=== PATIENT | male | born 1950 | race Caucasian/White ===

== ENCOUNTER 2018-06-08 11:26 | Inpatient (IN) | payer MEDICARE, MEDICAID ==
[~2018-06-08] VITALS: Ht 188 cm; Wt 98.9 kg
[~2018-06-08 11:26] MED LIST: AMLO5TAB4 PO; ASPI-495 PO; ATOR80TA GT; CLON0.1T14 GT; CLON0.3T4 GT; DIAZ5TAB GT; DOCU-141 PO; HYDR-3974 GT; HYDR-4077 GT; LORA-259 GT; MAGN400O6 PO; METO25TA20 GT; TRAM50TA GT; [UNRECOGNIZED DRUG - CODE] GT
[2018-06-08] MEDS ORDERED: CHOL100044 PO (11:59)
[2018-06-08] MEDS ORDERED: NA P133E RC (11:59)
[2018-06-08] MEDS ORDERED: BISA10SU8 RC (11:59)
[2018-06-08] MEDS ORDERED: LABE300T2 PO (11:59)
[2018-06-08] MEDS ORDERED: SERT25TA5 PO (11:59)
[2018-06-08] MEDS ORDERED: LEVE250T2 PO (11:59)
[2018-06-08] MEDS ORDERED: ACET-868 PO (11:59)
[2018-06-08] MEDS ORDERED: RANI150T8 PO (11:59)
[2018-06-08] MEDS ORDERED: SENN-168 PO (11:59)
[2018-06-08] MEDS ORDERED: ATOR10TA PO (11:59)
[2018-06-08] MEDS ORDERED: BENA20TA9 PO (11:59)
[2018-06-08] MEDS ORDERED: IV NS 0.9% 500 ML BAG IV ONE (12:30)
[2018-06-08 13:01] LABS: BASOPHILS # (AUTO) 0.1 /CMM (0.0-0.2); EOSINOPHILS % (AUTO) 2.7 % (0.0-6.0); HEMATOCRIT 39 % (39-51); HEMOGLOBIN 12.9 g/dL (13.5-17.5); LYMPHOCYTES # (AUTO) 1.7 /CMM (0.8-4.8); LYMPHOCYTES % (AUTO) 25.7 % (20.0-44.0); MEAN CORPUSCULAR HGB CONC 34 g/dl (31.0-36.0); MEAN CORPUSCULAR VOLUME 92 fL (80-96); MONOCYTES # (AUTO) 0.6 /CMM (0.1-1.30); MONOCYTES % (AUTO) 9.1 % (2.0-12.0); NEUTROPHILS # (AUTO) 4.1 /CMM (1.8-8.9); NEUTROPHILS % (AUTO) 61.5 % (43.0-81.0); PLATELET COUNT (AUTO) 226 /CMM (150-450); RED BLOOD CELL COUNT(AUTO) 4.17 MIL/uL (4.5-6.0); WHITE BLOOD COUNT (AUTO) 6.7 K/uL (4.3-11.0)
[2018-06-08 13:08] LABS: ALBUMIN 3.1 g/dL (3.4-5.0); BILIRUBIN,DIRECT 0.1 mg/dL (0.0-0.2); BILIRUBIN,TOTAL 0.3 mg/dL (0.2-1.0); CALCIUM, SERUM 9.2 mg/dL (8.5-10.1); CREATININE 1.1 mg/dL (0.6-1.3); POTASSIUM 3.9 mmol/L (3.5-5.1); TOTAL PROTEIN, SERUM 6.2 g/dL (6.4-8.2)
--- NOTE | 2018-06-08 13:54 | NUR ---
DR MARY ERWIN PAGED REGARDING ORDER FOR THIS PATIENT.
--- NOTE | 2018-06-08 14:33 | NUR ---
CALLED [facility] FOR THIS PATIENT, PAGED CHENTE.
--- NOTE | 2018-06-08 15:21 | NUR ---
ADMIT TO 310-2 TELE DX GI BLEED, ACCEPTING CHENTE NO
--- NOTE | 2018-06-08 15:25 | NUR ---
REPORT GIVEN TO LATOSHA KRAMER. PT AWAITING TRANSFER TO FLOOR.
--- NOTE | 2018-06-08 15:30 | NUR ---
PT STBLE FOR TRANSFER VSS
--- NOTE | 2018-06-08 15:30 | NUR ---
CAR RESTORERSUPERVISOR METALIZING NOTES RECEIVED PATIENT ON PATEL ACCOMPANIED BY 2 ER NURSES. PATIENT ADMITTED FOR PRIMARY DIAGNOSIS OF GI BLEED. PATIENT A/OX3 AND ABLE TO MAKE NEEDS KNOWN. RESPIRATION EVEN AND NON LABORED WITH NO ACUTE RESPIRATORY DISTRESS, NO SHORTNESS OF BREATH PRESENT, KEPT HEAD OF BED ELEVATED. ABDOMEN SOFT AND NON DISTENDED WITH ACTIVE BOWEL SOUNDS; LBM TODAY 06/08/2018. PATIENT DENIES PAIN AND DISCOMFORT AT THIS TIME. SKIN WARM TO TOUCH, INTACT AND DRY. IV SITE RIGHT HAND GAUGE 22. ORIENTED PATIENT TO PLACE AND STAFF. ALL CONCERNS ADDRESSED. PLACED CALL LIGHT WITHIN REACH TO ENSURE SAFETY. PAGED AYESHA FOR ADMISSION. WILL CONTINUE TO EVALUATE CARE.
[2018-06-08 16:00] VITALS: BP 120/70
[2018-06-08] MEDS ORDERED: INSULIN REGULAR, HUMAN 100 UNIT/ML 3 ML VIAL SQ PRN (16:30)
[2018-06-08] MEDS ORDERED: ACETAMINOPHEN 325 MG TABLET PO PRN (16:30)
[2018-06-08] MEDS ORDERED: Z GUARD REMEDY 2 OZ OINT TP PRN (16:30)
[2018-06-08] MEDS ORDERED: MORPHINE SULFATE INJ 2 MG/ML DISP.SYRIN IV PRN (16:30)
[2018-06-08] MEDS ORDERED: ONDANSETRON HCL/PF 4 MG/2 ML VIAL IVP PRN (16:30)
[2018-06-08] MEDS ORDERED: HYDROCODONE/APAP 5/325MG 1 EACH TABLET PO PRN (16:30)
[2018-06-08] MEDS ORDERED: MAGNESIUM HYDROXIDE 30 ML UDC PO PRN (16:30)
[2018-06-08] MEDS ORDERED: DEXTROSE 50%-WATER 50 ML DISP.SYRIN IV PRN (16:30)
[2018-06-08] MEDS ORDERED: MAG HYDROX/AL HYDROX/SIMETH 30 ML UDC PO PRN (16:30)
[2018-06-08] MEDS ORDERED: ZOLPIDEM TARTRATE 5 MG TABLET PO PRN (16:30)
[2018-06-08] MEDS: LEVETIRACETAM (250 MG) 250 MG TABLET PO SCH (17:48)
[2018-06-08] MEDS: LABETALOL HCL (100MG) 100 MG TABLET PO SCH (17:48)
[2018-06-08] MEDS: PANTOPRAZOLE 40 MG VIAL IV SCH (17:49)
--- NOTE | 2018-06-08 18:30 | NUR ---
FINISHING POWDER PRESS OPERATOR OBTAINED CONSENT FOR COLONOSCOPY AND EGD WITH PATIENT FULL ORIENTATION AND VERBAL UNDERSTANDING. RISK AND BENEFITS OF THE PROCEDURE DISCUSSED WITH NO CONCERNS ADDRESSED AFTER.
--- NOTE | 2018-06-08 18:37 | NUR ---
ANIMAL STUNNER CLOSING NOTES PATIENT A/O X2 AND ABLE TO MAKE NEEDS KNOWN. RESPIRATION EVEN AND UNLABORED WITH NO ACUTE RESPIRATORY DISTRESS. ABDOMEN SOFT AND NON DISTENDED WITH ACTIVE BOWEL SOUNDS. DENIES PAIN AND DISCOMFORT. SKIN INTACT AND DRY, WARM TO TOUCH. IV SITE ON RIGHT HAND #20 WITH NO S/SX OF INFILTRATION. ALL CONCERNS ATTENDED. PLACED CALL LIGHT WITHIN REACH FOR SAFETY. ENDORSED PATIENT CONDITION TO NEXT SHIFT.
[2018-06-08] MEDS: CHOLECALCIFEROL 1,000 UNIT TABLET (VIT D3) PO SCH (18:52)
[2018-06-08] MEDS ORDERED: PEG 3350/NA SULF,BICARB,CL/KCL 4,000 ML BOTTLE PO ONE (19:00)
[2018-06-08] MEDS: BLOOD SUGAR DIAGNOSTIC 1 EACH STRIP IN SCH (19:03)
--- NOTE | 2018-06-08 19:08 | NUR ---
CROWN ASSEMBLY MACHINE SET UP MECHANIC PATIENT REFUSED ADMINISTRATION OF INSULIN PER SLIDING SCALE OF 2 UNITS. RISK AND BENEFITS DISCUSSED BUT STILL REFUSED. WILL CONTINUE TO EVALUATE CARE
--- NOTE | 2018-06-08 19:40 | NUR ---
RN NOTES RECEIVED PATIENT AWAKE IN SEMI FOWLERS POSITION IN BED, CALM RESTING COMFORTABLY, NO SIGNS OF ACUTE RESPIRATORY DISTRESS NOTED, ALL SAFETY MEASURES IN PLACED, ASPIRATION PRECAUTION MAINTAINED, ON FULL LIQUID DIET, INSTRUCTED PATIENT THAT HE WILL BE ON NPO AFTER MIDNIGHT IN PREPARATION FOR TOMORROWS PROCEDURE, COLONOSCOPY AND ENDOSCOPY, PATIENT VERBALIZES UNDERSTANDING. ALL NEEDS ATTENDED, WILL CONTINUE TO MONITOR ACCORDINGLY.
[2018-06-08 20:00] VITALS: BP 145/71
--- NOTE | 2018-06-08 20:10 | NUR ---
RN NOTES SISTER CALLED, INFORMED HER REGARDING PATIENT'S CONDITION.
--- NOTE | 2018-06-08 20:30 | NUR ---
RN NOTES PATIENT'S BROTHER CALLED, INFORMED HIM REGARDING PATIENT'S CONDITION.
[2018-06-08] MEDS: SENNOSIDES 8.6 MG TABLET PO SCH (21:17)
[2018-06-08] MEDS: ATORVASTATIN 10 MG TABLET PO SCH (21:17)
[2018-06-08] MEDS: DOCUSATE SODIUM 100 MG CAPSULE PO SCH (21:17)
[2018-06-08] MEDS: BENAZEPRIL HCL 20 MG TABLET PO SCH (21:17)
[2018-06-08] MEDS: FAMOTIDINE (20 MG) 20 MG TABLET PO SCH (21:18)
[2018-06-08] MEDS: AMLODIPINE BESYLATE 5 MG TABLET PO SCH (21:18)
[2018-06-09] VITALS (7 sets, daily range): BP systolic 111–151; BP diastolic 64–83
--- NOTE | 2018-06-09 00:05 | NUR ---
RN NOTES PATIENTS BLOOD SUGAR IS 89 MG/DL. WILL MONITOR.
--- NOTE | 2018-06-09 01:00 | NUR ---
RN NOTES PATIENT ON NPO FOR PROCEDURE CHRIS. PATIENT AWARE, AND VERBALIZES UNDERSTANDING, WILL MONITOR.
--- NOTE | 2018-06-09 05:00 | NUR ---
RN NOTES PATIENT REFUSED AM LABS, AT THIS TIME, WILL FOLLOW UP LATER.
[2018-06-09] MEDS: BLOOD SUGAR DIAGNOSTIC 1 EACH STRIP IN SCH ×4 (06:17→17:09)
--- NOTE | 2018-06-09 06:45 | NUR ---
RN NOTES ALL NEEDS ATTENDED AND MET, KEPT CLEAN DRY AND COMFORTABLE, BS IS 91 MG/DL, NPO MAINTAINED, WILL ENDORSE TO AM NURSE FOR CONTINUITY OF CARE.
[2018-06-09 07:21] LABS: BASOPHILS % (AUTO) 0.8 % (0.0-2.0); EOSINOPHILS % (AUTO) 2.7 % (0.0-6.0); HEMATOCRIT 37 % (39-51); HEMOGLOBIN 12.7 g/dL (13.5-17.5); LYMPHOCYTES # (AUTO) 1.6 /CMM (0.8-4.8); LYMPHOCYTES % (AUTO) 28.2 % (20.0-44.0); MEAN CORPUSCULAR HGB CONC 34 g/dl (31.0-36.0); MEAN CORPUSCULAR VOLUME 92 fL (80-96); MONOCYTES # (AUTO) 0.5 /CMM (0.1-1.30); MONOCYTES % (AUTO) 9.6 % (2.0-12.0); NEUTROPHILS # (AUTO) 3.3 /CMM (1.8-8.9); NEUTROPHILS % (AUTO) 58.7 % (43.0-81.0); PLATELET COUNT (AUTO) 204 /CMM (150-450); RED BLOOD CELL COUNT(AUTO) 4.08 MIL/uL (4.5-6.0); WHITE BLOOD COUNT (AUTO) 5.7 K/uL (4.3-11.0)
--- NOTE | 2018-06-09 07:30 | NUR ---
Bedside report recieved. patient seen in bed. arousable to voice. speaks slowly but is alert and oriented. patient confirms he has been npo verbally. reviewed poc of the day patient is scheduled for egd and colonoscopy. patient completed bowel prep but still is not clear per report at this time but is no longer having visible blood in stool. patient denies pain. bed down licked and call light in reach. encouraged to call for assistance as needed.
[2018-06-09 07:59] LABS: ALBUMIN 3.3 g/dL (3.4-5.0); BILIRUBIN,TOTAL 0.4 mg/dL (0.2-1.0); CALCIUM, SERUM 8.6 mg/dL (8.5-10.1); MAGNESIUM 1.6 mg/dL (1.8-2.4); PHOSPHORUS 2.7 mg/dL (2.5-4.9); POTASSIUM 3.7 mmol/L (3.5-5.1); TOTAL PROTEIN, SERUM 6.4 g/dL (6.4-8.2)
[2018-06-09] MEDS: BENAZEPRIL HCL 20 MG TABLET PO SCH ×2 (09:00→21:30)
[2018-06-09] MEDS: SERTRALINE HCL 25 MG TABLET PO SCH (09:00)
[2018-06-09] MEDS: LEVETIRACETAM (250 MG) 250 MG TABLET PO SCH ×2 (09:00→17:20)
[2018-06-09] MEDS: LABETALOL HCL (100MG) 100 MG TABLET PO SCH ×2 (09:00→21:30)
[2018-06-09] MEDS: Magnesium 1GM/D5W 100ML PREMIX 100 ML IV SCH ×2 (09:54→13:04)
[2018-06-09] MEDS: PANTOPRAZOLE 40 MG VIAL IV SCH ×2 (09:54→17:20)
[2018-06-09] MEDS: IV D5 LR 1,000 ML IV PRN (09:59)
[2018-06-09] MEDS ORDERED: METHYLENE BLUE 10 ML VIAL ONE (12:10)
[2018-06-09] MEDS: CHOLECALCIFEROL 1,000 UNIT TABLET (VIT D3) PO SCH (17:20)
--- NOTE | 2018-06-09 19:15 | NUR ---
MS RN NOTES RECEIVED PT IN BED AWAKE IN SEMI FOWLERS POSITION AND ABLE TO MAKE NEEDS KNOWN. BREATHING EVEN AND UNLABORED WITH NO S/S OF ACUTE DISTRESS OR SOB NOTED. SAFETY MEASURES IN PLACED WITH BED IN LOW LOCKED POSITIONS AND SIDE RAILS UP X2. RHAND #20G RUNNING D5LR @75 ML/HR. ASPIRATION PRECAUTIONS MAINTAINED. CALL LIGHT WITHIN REACH. WILL CONTINUE TO MONITOR.
--- NOTE | 2018-06-09 19:20 | NUR ---
RN CLOSE NOTE REPORT GIVEN TO YONNY KRAMER. PATIENT IN BED IN NO APPARENT DISTRESS. BED DOWN LOCKED CALL LIGHT IN REACH. PATIENT DENIES DISCOMFORT. BED DOWN LOCKED SR X3.
[2018-06-09] MEDS: DOCUSATE SODIUM 100 MG CAPSULE PO SCH (21:29)
[2018-06-09] MEDS: AMLODIPINE BESYLATE 5 MG TABLET PO SCH (21:29)
[2018-06-09] MEDS: FAMOTIDINE (20 MG) 20 MG TABLET PO SCH (21:30)
[2018-06-09] MEDS: POLYETHYLENE GLYCOL 3350 17 GM POWD.PACK PO SCH (21:30)
[2018-06-09] MEDS: ATORVASTATIN 10 MG TABLET PO SCH (21:30)
[2018-06-09] MEDS: SENNOSIDES 8.6 MG TABLET PO SCH (21:30)
--- NOTE | 2018-06-10 | NUR ---
MS RN NOTES PT REFUSED SKIN CHECK/PICTURES TAKEN. PT STATES THAT HE DOES NOT HAVE ANY WOUND, PROBLEM AREAS, OR REDNESS.
[2018-06-10] MEDS: BLOOD SUGAR DIAGNOSTIC 1 EACH STRIP IN SCH ×5 (00:57→21:21)
[2018-06-10] MEDS: IV D5 LR 1,000 ML IV PRN ×2 (03:29→18:59)
--- NOTE | 2018-06-10 06:25 | NUR ---
MS RN NOTES PT REFUSED 0600 BS CHECK.
--- NOTE | 2018-06-10 07:00 | NUR ---
MS RN NOTES PT IN BED SLEEPING IN SEMI FOWLERS POSITION BUT EASILY AWOKEN VERBALLY OR BY TOUCH. PT A/O X3 AND ABLE TO MAKE NEEDS KNOWN. BREATHING EVEN AND UNLABORED WITH NO S/S OF ACUTE DISTRESS OR SOB NOTED THROUGHOUT SHIFT. SAFETY MEASURES IN PLACED WITH BED IN LOW LOCKED POSITIONS AND SIDE RAILS UP X2. RHAND #20G RUNNING D5LR @75 ML/HR. ASPIRATION PRECAUTIONS MAINTAINED. CALL LIGHT WITHIN REACH. WILL ENDORSE TO ONCOMING NURSE FOR SHIKHA.
--- NOTE | 2018-06-10 07:15 | NUR ---
MS RN Opening Notes Patient asleep, resting in bed. Semi-Fowlers position. Alert and oriented x4, able to make needs known. No complaints of shortness of breath or pain at this time. Respirations even and unlabored on room air, no acute distress noted. Peripheral IV to the right hand 20 gauge, intact, patent and infusing fluids as ordered. Updated patient on current plan of care and safety measures. Patient verbalized understanding. Safety and fall precautions in place: bed in lowest and locked position, side rails up x2, bed alarm on, call light and personal possessions within reach. Will continue to monitor and intervene as needed.
[2018-06-10 08:00] VITALS: BP 126/74
[2018-06-10] MEDS: SERTRALINE HCL 25 MG TABLET PO SCH (08:55)
[2018-06-10] MEDS: PANTOPRAZOLE 40 MG VIAL IV SCH ×2 (08:55→16:19)
[2018-06-10] MEDS: LEVETIRACETAM (250 MG) 250 MG TABLET PO SCH ×2 (08:55→16:19)
[2018-06-10] MEDS: LABETALOL HCL (100MG) 100 MG TABLET PO SCH ×2 (08:56→21:07)
[2018-06-10] MEDS: BENAZEPRIL HCL 20 MG TABLET PO SCH ×2 (08:56→21:06)
[2018-06-10 10:12] LABS: BASOPHILS % (AUTO) 0.6 % (0.0-2.0); EOSINOPHILS % (AUTO) 2.3 % (0.0-6.0); HEMATOCRIT 35 % (39-51); HEMOGLOBIN 11.6 g/dL (13.5-17.5); LYMPHOCYTES # (AUTO) 1.3 /CMM (0.8-4.8); LYMPHOCYTES % (AUTO) 18.7 % (20.0-44.0); MEAN CORPUSCULAR HGB CONC 34 g/dl (31.0-36.0); MEAN CORPUSCULAR VOLUME 92 fL (80-96); MONOCYTES # (AUTO) 0.7 /CMM (0.1-1.30); MONOCYTES % (AUTO) 10.4 % (2.0-12.0); NEUTROPHILS # (AUTO) 4.6 /CMM (1.8-8.9); PLATELET COUNT (AUTO) 199 /CMM (150-450); RED BLOOD CELL COUNT(AUTO) 3.77 MIL/uL (4.5-6.0); WHITE BLOOD COUNT (AUTO) 6.8 K/uL (4.3-11.0)
[2018-06-10] MEDS ORDERED: CT SWABBABLE VALVE TRANS SET 1 EA INFUS.SET MC ONE (10:17)
[2018-06-10] MEDS ORDERED: IOHEXOL-300 100 ML VIAL IV ONE (10:17)
[2018-06-10] MEDS ORDERED: IV NS 0.9% 250 ML IV ONE (10:17)
[2018-06-10 10:24] LABS: CALCIUM, SERUM 8.6 mg/dL (8.5-10.1); CREATININE 1.1 mg/dL (0.6-1.3); MAGNESIUM 1.7 mg/dL (1.8-2.4); PHOSPHORUS 2.9 mg/dL (2.5-4.9); POTASSIUM 4.1 mmol/L (3.5-5.1)
[2018-06-10 16:00] VITALS: BP 119/61
[2018-06-10] MEDS: CHOLECALCIFEROL 1,000 UNIT TABLET (VIT D3) PO SCH (18:00)
--- NOTE | 2018-06-10 18:18 | NUR ---
MS RN Closing Notes Patient asleep, resting in bed. Semi-Fowlers position. Alert and oriented x4, able to make needs known. No complaints of shortness of breath or pain at this time. Respirations even and unlabored on room air, no acute distress noted. Peripheral IV to the right hand 20 gauge, intact, patent and infusing fluids as ordered. No acute events this shift. All needs attended to this shift. Currently, clean and dry. Updated patient on current plan of care and safety measures. Patient verbalized understanding. Safety and fall precautions in place: bed in lowest and locked position, side rails up x2, bed alarm on, call light and personal possessions within reach. Will endorse to shift foreman RN for continuity of care.
--- NOTE | 2018-06-10 19:50 | NUR ---
RN MS OPENING NOTES RECEIVED PT IN BED, AWAKE ALERT ORIENTED X4, BREATHING EVEN AND UNLABORED ON ROOM AIR. NO COMPLAINT OF PAIN OR DISCOMFORT AT THIS TIME. IV ACCESS ON THE R AC 20G WITH D5LR @75ML/HR. BED IN LOWEST LOCKED POSITION, CALL LIGHT WITHIN REACH AT ALL TIMES, WILL CONTINUE TO MONITOR FREQUENTLY/
[2018-06-10 20:00] VITALS: BP 118/64
[2018-06-10] MEDS: AMLODIPINE BESYLATE 5 MG TABLET PO SCH (21:05)
[2018-06-10] MEDS: ATORVASTATIN 10 MG TABLET PO SCH (21:06)
[2018-06-10] MEDS: POLYETHYLENE GLYCOL 3350 17 GM POWD.PACK PO SCH ×2 (21:07→21:22)
[2018-06-10] MEDS: DOCUSATE SODIUM 100 MG CAPSULE PO SCH (21:07)
[2018-06-10] MEDS: FAMOTIDINE (20 MG) 20 MG TABLET PO SCH (21:07)
[2018-06-10] MEDS: SENNOSIDES 8.6 MG TABLET PO SCH (21:09)
[2018-06-11] VITALS: BP 134/82
--- NOTE | 2018-06-11 06:14 | NUR ---
RN MS CLOSING NOTES PT REMAINS IN BED, AWAKE ALERT ORIENTED X4, BREATHING EVEN AND UNLABORED ON ROOM AIR. NO COMPLAINT OF PAIN OR DISCOMFORT AT THIS TIME. IV ACCESS ON THE R AC 20G WITH D5LR @75ML/HR. BED IN LOWEST LOCKED POSITION, CALL LIGHT WITHIN REACH AT ALL TIMES, WILL ENDORSE TO DAY NURSE FOR SHIKHA
[2018-06-11] MEDS: BLOOD SUGAR DIAGNOSTIC 1 EACH STRIP IN SCH ×4 (06:31→21:40)
[2018-06-11] MEDS: IV D5 LR 1,000 ML IV PRN (06:55)
[2018-06-11 08:00] VITALS: BP 112/68
--- NOTE | 2018-06-11 08:00 | NUR ---
MS RN AM NOTES PT REMAINS IN BED,SLEEPING COMFORTABLY BUT AROUSABLE.ALERT ORIENTED X4, BREATHING EVEN AND UNLABORED ON ROOM AIR. NO COMPLAINT OF PAIN OR DISCOMFORT AT THIS TIME. IV ACCESS ON THE R AC 20G WITH D5LR @75ML/HR. BED IN LOWEST LOCKED POSITION, CALL LIGHT WITHIN REACH AT ALL TIMES,
[2018-06-11] MEDS: BENAZEPRIL HCL 20 MG TABLET PO SCH ×2 (09:20→21:36)
[2018-06-11] MEDS: SERTRALINE HCL 25 MG TABLET PO SCH (09:21)
[2018-06-11] MEDS: LABETALOL HCL (100MG) 100 MG TABLET PO SCH ×2 (09:21→21:39)
[2018-06-11] MEDS: PANTOPRAZOLE 40 MG VIAL IV SCH ×2 (09:34→17:38)
[2018-06-11] MEDS: LEVETIRACETAM (250 MG) 250 MG TABLET PO SCH ×2 (09:52→17:38)
[2018-06-11 16:00] VITALS: BP 106/63
[2018-06-11] MEDS: CHOLECALCIFEROL 1,000 UNIT TABLET (VIT D3) PO SCH (17:38)
--- NOTE | 2018-06-11 18:53 | NUR ---
PT RESTING IN BED DENYING ANY PAIN OR DISTRESS.SEEN BY DR WRAY(ONCO).CALL LIGHT PLACED WITHIN REACH.
--- NOTE | 2018-06-11 19:15 | NUR ---
MS RN NOTES RECEIVED PT IN BED AWAKE IN SEMI FOWLERS POSITION AND ABLE TO MAKE NEEDS KNOWN. BREATHING EVEN AND UNLABORED WITH NO S/S OF ACUTE DISTRESS OR SOB NOTED. SAFETY MEASURES IN PLACED WITH BED IN LOW LOCKED POSITIONS AND SIDE RAILS UP X2. RAC #20G PATENT AND INTACT, HL. ASPIRATION PRECAUTIONS IN-PLACE. CALL LIGHT WITHIN REACH. WILL CONTINUE TO MONITOR.
[2018-06-11 20:51] VITALS: BP 114/60
[2018-06-11] MEDS: POLYETHYLENE GLYCOL 3350 17 GM POWD.PACK PO SCH (21:38)
[2018-06-11] MEDS: AMLODIPINE BESYLATE 5 MG TABLET PO SCH (21:39)
[2018-06-11] MEDS: ATORVASTATIN 10 MG TABLET PO SCH (21:39)
[2018-06-11] MEDS: DOCUSATE SODIUM 100 MG CAPSULE PO SCH (21:40)
[2018-06-11] MEDS: FAMOTIDINE (20 MG) 20 MG TABLET PO SCH (21:40)
[2018-06-11] MEDS: SENNOSIDES 8.6 MG TABLET PO SCH (21:40)
--- NOTE | 2018-06-12 02:40 | NUR ---
MS RN Continuity of care Received report from WILLIAMS New. Patient in bed, awake. On RA denies SOB. Call light within reach, safety measure explained. Will cont to monitor.
--- NOTE | 2018-06-12 06:19 | NUR ---
MS RN Patient in bed, stable oxygen saturation on RA denies SOB. Had BM this shift Stool with blood smear, VSS. GI and Oncology following. Voiding urine, strong odor, denies pain. Left sided weakness, two person assist with repositioning. Call light within reach, fall precaution, maintained safety, will endorse to oncoming RN.
[2018-06-12 06:51] LABS: FERRITIN 263 ng/mL (8-388)
[2018-06-12 07:13] LABS: IRON, SERUM 51 ug/dl (50-175); TOTAL IRON BINDING CAPACITY 207 ug/dl (250-450)
--- NOTE | 2018-06-12 07:22 | NUR ---
Magnesium level 1.7 on 06/10/18 no records found was supplemented. Endorsed to WILLIAMS Thornton to follow up with .
--- NOTE | 2018-06-12 07:30 | NUR ---
RECEIVED PT. THIS AM ALERT AND ORIENTED X3.DIFFICULTY VERBALIZING NEEDS AT TIMES.LT. SIDED WEAKNESS.SIDE RAILS UP CALL LIGHT WITHIN REACH.
[2018-06-12 08:00] VITALS: BP 121/64
[2018-06-12] MEDS: BLOOD SUGAR DIAGNOSTIC 1 EACH STRIP IN SCH ×4 (08:26→21:50)
[2018-06-12] MEDS: LABETALOL HCL (100MG) 100 MG TABLET PO SCH ×2 (09:00→21:39)
[2018-06-12 09:08] LABS: BASOPHILS % (AUTO) 0.6 % (0.0-2.0); EOSINOPHILS % (AUTO) 3.1 % (0.0-6.0); HEMATOCRIT 38 % (39-51); HEMOGLOBIN 13.2 g/dL (13.5-17.5); LYMPHOCYTES # (AUTO) 1.5 /CMM (0.8-4.8); LYMPHOCYTES % (AUTO) 22.4 % (20.0-44.0); MEAN CORPUSCULAR HGB CONC 35 g/dl (31.0-36.0); MEAN CORPUSCULAR VOLUME 91 fL (80-96); MONOCYTES # (AUTO) 0.4 /CMM (0.1-1.30); MONOCYTES % (AUTO) 6.2 % (2.0-12.0); NEUTROPHILS # (AUTO) 4.6 /CMM (1.8-8.9); NEUTROPHILS % (AUTO) 67.7 % (43.0-81.0); PLATELET COUNT (AUTO) 191 /CMM (150-450); RED BLOOD CELL COUNT(AUTO) 4.22 MIL/uL (4.5-6.0); WHITE BLOOD COUNT (AUTO) 6.8 K/uL (4.3-11.0)
[2018-06-12] MEDS: PANTOPRAZOLE 40 MG VIAL IV SCH ×2 (09:43→18:42)
[2018-06-12] MEDS: BENAZEPRIL HCL 20 MG TABLET PO SCH ×2 (09:44→21:36)
[2018-06-12] MEDS: LEVETIRACETAM (250 MG) 250 MG TABLET PO SCH ×2 (09:44→18:42)
--- NOTE | 2018-06-12 10:30 | NUR ---
BROTHER ZOE CALLING FROM OUT OF STATE TO CHECK ON PT.
[2018-06-12] MEDS ORDERED: POTASSIUM CHLORIDE 20 MEQ TAB.PRT.SR PO SCH (12:30)
[2018-06-12] MEDS: Magnesium 1GM/D5W 100ML PREMIX 100 ML IV SCH ×2 (13:36→15:04)
[2018-06-12 16:00] VITALS: BP 105/68
--- NOTE | 2018-06-12 17:00 | NUR ---
DR. RAMON IN AND TOLD PT. HE MAY HAVE CANCER-DEFERRED PRIMARY TO CONTACT DPOA BROTHER.
--- NOTE | 2018-06-12 17:30 | NUR ---
MG REPLACEMENT DONE.
[2018-06-12] MEDS: SERTRALINE HCL 25 MG TABLET PO SCH (18:42)
[2018-06-12] MEDS: CHOLECALCIFEROL 1,000 UNIT TABLET (VIT D3) PO SCH (18:48)
--- NOTE | 2018-06-12 19:00 | NUR ---
EVELIN WRAY MD IN AND CONTACTED OZE, BROTHER TO INFORM HIM OF PT. STATUS.
--- NOTE | 2018-06-12 19:10 | NUR ---
MS RN NOTES RECEIVED PT IN BED AWAKE IN SEMI FOWLERS POSITION AND ABLE TO MAKE NEEDS KNOWN. PT A/O X3. RAC #20G PATENT AND INTACT, HL. ASPIRATION PRECAUTIONS IN-PLACE. SAFETY MEASURES IN PLACED WITH BED IN LOW LOCKED POSITIONS AND SIDE RAILS UP X2. BREATHING EVEN AND UNLABORED WITH NO S/S OF ACUTE DISTRESS OR SOB NOTED. CALL LIGHT WITHIN REACH. WILL CONTINUE TO MONITOR.
[2018-06-12 20:45] VITALS: BP 126/70
[2018-06-12] MEDS: POLYETHYLENE GLYCOL 3350 17 GM POWD.PACK PO SCH (21:37)
[2018-06-12] MEDS: SENNOSIDES 8.6 MG TABLET PO SCH (21:38)
[2018-06-12] MEDS: FAMOTIDINE (20 MG) 20 MG TABLET PO SCH (21:38)
[2018-06-12] MEDS: DOCUSATE SODIUM 100 MG CAPSULE PO SCH (21:38)
[2018-06-12] MEDS: ATORVASTATIN 10 MG TABLET PO SCH (21:38)
[2018-06-12] MEDS: AMLODIPINE BESYLATE 5 MG TABLET PO SCH (21:38)
[2018-06-13] MEDS: BLOOD SUGAR DIAGNOSTIC 1 EACH STRIP IN SCH ×3 (06:51→17:05)
--- NOTE | 2018-06-13 06:53 | NUR ---
MS RN NOTES PT REFUSED BLOOD GLUCOSE CHECK.
--- NOTE | 2018-06-13 07:30 | NUR ---
MS RN OPENING NOTE RECEIVED PATIENT IN BED. SLEEPING, EASILY AROUSED WITH VERBAL STIMULI. ORIENTED X3, SLOW TO RESPOND. ON ROOM AIR, TOLERATING WELL. IN NO APPARENT DISTRESS OR DISCOMFORT AT THIS TIME. RESPIRATIONS EVEN AND UNLABORED. DENIES PAIN AND SOB. PATIENT IS ABLE TO COMMUNICATE NEEDS. USES DIAPER FOR ELIMINATION. RIGHT AC 20G IVC SL, PATENT INTACT. PATIENT KEPT CLEAN AND COMFORTABLE. ALL NEEDS ATTENDED, SAFETY MEASURES IN PLACE, BED IN LOW LOCKED POSITION, SIDE RAILS UP X2, CALL LIGHT WITHIN EASY REACH. WILL CONTINUE TO MONITOR.
--- NOTE | 2018-06-13 07:35 | NUR ---
MS RN NOTES PT IN BED SLEEPING BUT EASILY AWOKEN VERBALLY OR BY TOUCH, IN SEMI FOWLERS POSITION. PT A/O X3 AND ABLE TO MAKE NEEDS KNOWN. RAC #20G PATENT AND INTACT, HL. ASPIRATION PRECAUTIONS IN-PLACE. SAFETY MEASURES IN PLACED WITH BED IN LOW LOCKED POSITIONS AND SIDE RAILS UP X2. BREATHING EVEN AND UNLABORED WITH NO S/S OF ACUTE DISTRESS OR SOB NOTED THROUGHOUT SHIFT. CALL LIGHT WITHIN REACH. WILL ENDORSE TO ONCOMING NURSE FOR SHIKHA.
[2018-06-13 07:50] LABS: CALCIUM, SERUM 8.9 mg/dL (8.5-10.1); CREATININE 1.1 mg/dL (0.6-1.3); MAGNESIUM 2.2 mg/dL (1.8-2.4); POTASSIUM 3.7 mmol/L (3.5-5.1)
[2018-06-13 08:00] VITALS: BP 124/69
[2018-06-13] MEDS: SERTRALINE HCL 25 MG TABLET PO SCH (08:37)
[2018-06-13] MEDS: LEVETIRACETAM (250 MG) 250 MG TABLET PO SCH ×2 (08:37→17:02)
[2018-06-13 08:38] VITALS: BP 124/69
[2018-06-13] MEDS: BENAZEPRIL HCL 20 MG TABLET PO SCH (08:38)
[2018-06-13] MEDS: LABETALOL HCL (100MG) 100 MG TABLET PO SCH (08:38)
[2018-06-13] MEDS: PANTOPRAZOLE 40 MG VIAL IV SCH ×2 (08:38→17:01)
--- NOTE | 2018-06-13 12:00 | NUR ---
PATIENT REFUSED ACCU-CHECK AT THIS TIME. RISKS AND BENEFITS EXPLAINED, VERBALIZED UNDERSTANDING. PATIENT HAD GOOD PO INTAKE. NO SIGNS OR SYMPTOMS OF HYPER/HYPOGLYCEMIA. MD AWARE. WILL CONTINUE TO MONITOR.
--- NOTE | 2018-06-13 17:00 | NUR ---
PATIENT REFUSED ACCU CHECK.
--- NOTE | 2018-06-13 17:15 | NUR ---
MS CARBON PLANT GRINDER NOTE RECEIVED ORDER FOR DISCHARGE FROM DR. GARNER. PATIENT IS BEING DISCHARGED BACK TO [facility]. ALERT ORIENTED X3, STABLE, VITAL SIGNS STABLE. ON ROOM AIR, TOLERATING WELL. IN NO APPARENT DISTRESS OR DISCOMFORT AT THIS TIME. RESPIRATIONS EVEN AND UNLABORED. DENIES PAIN AND SOB. DISCHARGE PAPERWORK PREPARED VIA [employer]. REPORT GIVEN TO LESLYE AT THE FACILITY REGARDING PATIENT CARE AND STATUS. MEDICATION ORDERS ATTACHED. EDUCATION PROVIDED TO THE PATIENT WELL REGARDING DISEASE PROCESS AND FOLLOW UP CARE. PATIENT VERBALIZED UNDERSTANDING OF ALL THE INSTRUCTIONS. ALL PAPERWORK SIGNED BY THE PATIENT, COPIES MADE PLACED IN CHART. PATIENT REPORTED THAT HE HAD RECEIVED VACCINATION BUT IS UNSURE IF HE HAD PNEUMONIA VACCINE WELL OR NOT. REFUSED SKIN PICTURES, STATING HE DOES NOT WANT TO BE BOTHER WITH THAT. PATIENT HAS NO BELONGINGS AT BEDSIDE. ALL DUE MEDICATIONS GIVEN UPON DISCHARGE. IV SITE REMOVED, TIP INTACT. ID BANDS REMOVED. PATIENT LEFT THE UNIT VIA AMBULANCE AT 1715.
== END 2018-06-13 17:20 | DRG 375 ==
LOC: ER 11:33 → TELE 15:22 → MED 06-09 08:48
PROVIDERS: ADMIT Hospitalist; ATTEND Legal Medicine
PROC: 0DJ08ZZ Inspection of Upper Intestinal Tract, Via Natural or Artificial Opening Endoscopic (ICD-10-PCS; principal; 2018-06-09)
PROC: 0DBP8ZX Excision of Rectum, Via Natural or Artificial Opening Endoscopic, Diagnostic (ICD-10-PCS; 2018-06-09)
PROC: 0DBH8ZX Excision of Cecum, Via Natural or Artificial Opening Endoscopic, Diagnostic (ICD-10-PCS; 2018-06-09)
DX: C20 Malignant neoplasm of rectum (principal); E44.1 Mild protein-calorie malnutrition; I69.354 Hemiplegia and hemiparesis following cerebral infarction affecting left non-dominant side; D64.9 Anemia, unspecified; K29.70 Gastritis, unspecified, without bleeding; K44.9 Diaphragmatic hernia without obstruction or gangrene; K52.9 Noninfective gastroenteritis and colitis, unspecified; E78.5 Hyperlipidemia, unspecified; E83.42 Hypomagnesemia; I10 Essential (primary) hypertension; M19.90 Unspecified osteoarthritis, unspecified site; Z79.01 Long term (current) use of anticoagulants; Z93.1 Gastrostomy status; E11.9 Type 2 diabetes mellitus without complications; E88.09 Other disorders of plasma-protein metabolism, not elsewhere classified; Z79.82 Long term (current) use of aspirin; Z68.28 Body mass index [BMI] 28.0-28.9, adult; K57.30 Diverticulosis of large intestine without perforation or abscess without bleeding; K63.89 Other specified diseases of intestine
CPT/HCPCS: 36415; 71045-TC; 71270-TC; 74178; 80048-TC; 80053-TC; 80061-TC; 80076-TC; 82378; 82728-TC; 82962-TC; 83540-TC; 83735-TC; 84100-TC; 85025-TC; 85610-TC; 86850-TC; 87081-TC; 88305-TC; C9113; G0378; J1815; J2704; J3475; J3490; J7030; J7050; Q9967; Q9968

== ENCOUNTER 2019-07-09 16:32 | Inpatient (IN) | payer MEDICARE, OTHER ==
[~2019-07-09] VITALS: Ht 182.9 cm; Wt 82.1 kg
[~2019-07-09 16:32] MED LIST changes: +ACET-868 PO; +ATOR10TA PO; -ATOR80TA GT; +BENA20TA9 PO; +BISA10SU11 RC; +CHOL100044 PO; -CLON0.1T14 GT; -CLON0.3T4 GT; -DIAZ5TAB GT; -HYDR-3974 GT; -HYDR-4077 GT; +LABE300T2 PO; +LEVE250T2 PO; -LORA-259 GT; -METO25TA20 GT; +NA P133E RC; +RANI150T8 PO; +SENN-261 PO; +SERT25TA5 PO; -TRAM50TA GT; -[UNRECOGNIZED DRUG - CODE] GT
--- NOTE | 2019-07-09 16:32 | NUR ---
IV LINE ESTABLISHED, BLOOD DRAWN AND SENT TO LAB.
--- NOTE | 2019-07-09 16:35 | NUR ---
SEEN AND EXAMINED BY FOR EVAL.
--- NOTE | 2019-07-09 16:35 | NUR ---
PT BIB RA C/O ALTERED SINCE 1200 WITH WEAKNESS AND FEVER, PT IS AAOX0, NOT IN RESPIRATORY DISTRESS, HOOKED TO O2 VIA NB AND TANK BUILDER, KEPT RESTED AND COMFORTABLE, WILL CONTINUE TO MONITOR.
[2019-07-09 16:47] LABS: BASOPHILS # (AUTO) 0.1 /CMM (0.0-0.2); BASOPHILS % (AUTO) 0.9 % (0.0-2.0); HEMATOCRIT 53 % (39-51); HEMOGLOBIN 17.9 g/dL (13.5-17.5); LYMPHOCYTES # (AUTO) 1.6 /CMM (0.8-4.8); LYMPHOCYTES % (AUTO) 26.3 % (20.0-44.0); MEAN CORPUSCULAR HGB CONC 34 g/dl (31.0-36.0); MEAN CORPUSCULAR VOLUME 92 fL (80-96); MONOCYTES # (AUTO) 0.8 /CMM (0.1-1.30); MONOCYTES % (AUTO) 13.4 % (2.0-12.0); NEUTROPHILS # (AUTO) 3.6 /CMM (1.8-8.9); NEUTROPHILS % (AUTO) 59.4 % (43.0-81.0); PLATELET COUNT (AUTO) 179 /CMM (150-450); RED BLOOD CELL COUNT(AUTO) 5.74 MIL/uL (4.5-6.0)
--- NOTE | 2019-07-09 16:55 | NUR ---
FORK ASSEMBLER AT BEDSIDE FOR XRAY.
[2019-07-09] MEDS ORDERED: IV NS 0.9% 1,000 ML BAG IV ONE (17:00)
[2019-07-09] MEDS ORDERED: VANCOMYCIN 1 GM in IV D5W 250 ML IV ONE (17:00)
[2019-07-09] MEDS ORDERED: PIPERACILLIN /TAZOBACTAM 3.375 G in IV D5W 50 ML IV ONE (17:00)
[2019-07-09 17:05] LABS: ALANINE AMINOTRANSFERASE 31 U/L (12-78); ALBUMIN 3.7 g/dL (3.4-5.0); ALKALINE PHOSPHATASE 63 U/L (46-116); ASPARTATE AMINOTRANSFERASE 20 U/L (15-37); B-TYPE NATRIURETIC PEPTIDE 373 PG/ML (0-125); BILIRUBIN,TOTAL 0.4 mg/dL (0.2-1.0); CALCIUM, SERUM 9.5 mg/dL (8.5-10.1); CARBON DIOXIDE 13 mmol/L (21-32); CHLORIDE 103 mmol/L (98-107); CREATININE 6.4 mg/dL (0.6-1.3); GLUCOSE 127 mg/dL (74-106); SODIUM SERUM 132 mmol/L (136-145); TOTAL PROTEIN, SERUM 8.1 g/dL (6.4-8.2)
[2019-07-09] MEDS ORDERED: CAPE500T15 PO (17:07)
[2019-07-09] MEDS ORDERED: CARV3.12 PO (17:07)
[2019-07-09] MEDS ORDERED: HYDR-4384 PO (17:07)
[2019-07-09] MEDS ORDERED: LEVE500S9 PO (17:07)
[2019-07-09] MEDS ORDERED: CRAN425C6 PO (17:07)
[2019-07-09] MEDS ORDERED: FAMO40OR5 PO (17:07)
[2019-07-09 17:08] LABS: POTASSIUM 6.3 mmol/L (3.5-5.1)
[2019-07-09 17:09] LABS: UREA NITROGEN, BLOOD 112 mg/dL (7-18)
--- NOTE | 2019-07-09 17:13 | NUR ---
CALLED NURSING SUP FOR ICU BED.
[2019-07-09] MEDS ORDERED: CALCIUM CHLORIDE 1,000 MG/10 ML DISP.SYRIN IV ONE (17:30)
[2019-07-09] MEDS ORDERED: DEXTROSE 50%-WATER 50 ML DISP.SYRIN IV ONE (17:30)
[2019-07-09] MEDS ORDERED: SODIUM BICARBONATE SYR 50 MEQ/50 ML DISP.SYRIN IV ONE (17:30)
[2019-07-09] MEDS ORDERED: INSULIN REGULAR, HUMAN 100 UNIT/ML 10 ML VIAL IV ONE (17:30)
[2019-07-09] MEDS ORDERED: CALCIUM CHLORIDE 1,000 MG/10 ML DISP.SYRIN ONE (17:44)
[2019-07-09] MEDS ORDERED: DEXTROSE 50%-WATER 50 ML DISP.SYRIN ONE (17:44)
[2019-07-09] MEDS ORDERED: SODIUM BICARBONATE SYR 50 MEQ/50 ML DISP.SYRIN ONE (17:44)
[2019-07-09] MEDS ORDERED: INSULIN REGULAR, HUMAN 100 UNIT/ML 10 ML VIAL ONE (17:45)
--- NOTE | 2019-07-09 18:00 | NUR ---
URINE SPECIMEN COLLECTED VIA BOOKER CATH AND SENT TO LAB.
[2019-07-09 18:04] LABS: C-REACTIVE PROTEIN 0.2 mg/dL (0.0-0.9); CREATINE KINASE, TOTAL 8 U/L (39-308); FERRITIN 122 ng/mL (8-388)
--- NOTE | 2019-07-09 18:42 | NUR ---
COVID SWAB OBTAINED AND SENT TO LAB.
--- NOTE | 2019-07-09 18:48 | NUR ---
PAGED DR. GARNER.
--- NOTE | 2019-07-09 18:50 | NUR ---
CENTRAL LINE INSERTED BY .
[2019-07-09 18:55] LABS: APPEARANCE,URINE Clear (CLEAR); BILIRUBIN,URINE Negative (NEGATIVE); BLOOD, URINE Moderate Ery/uL (NEGATIVE); COLOR,URINE Yellow (YELLOW); KETONES,URINE Negative (NEGATIVE); LEUKOCYTE ESTERASE ,URINE Trace (NEGATIVE); NITRITE, URINE Negative (NEGATIVE); PROTEIN,URINE 100 mg/dl (NEGATIVE); UGLUCOSE 100 MG/DL mg/dL (NEGATIVE); UROBILINOGEN,URINE 0.2 EU/dL (0.2)
--- NOTE | 2019-07-09 18:55 | NUR ---
CALLED PHARMACY FOR LEVOPHED
[2019-07-09 19:00] LABS: BACTERIA,URINE Moderate /HPF (None Seen); SQUAMOUS EPITHELIAL CELL,UR Few /HPF (None Seen)
[2019-07-09] MEDS ORDERED: NOREPINEPHRINE 8 MG in IV NS 0.9% 242 ML IV PRN (19:00)
--- NOTE | 2019-07-09 19:13 | NUR ---
REPORT GIVEN TO WILLIAMS COPELAND FOR SHIKHA.
--- NOTE | 2019-07-09 19:27 | NUR ---
PATIENT'S BLOOD PRESSURE AT 83/57 LEVOPHED STARTED AT 1MCG/KG/MIN. NOTIFIED.
--- NOTE | 2019-07-09 19:27 | NUR ---
Lexis suresh in ED - 07/09/19 at 2047 by FREDY PATIENT'S BLOOD PRESSURE AT 83/57 LEVOPHED STARTED AT 2MCG/MIN.
--- NOTE | 2019-07-09 19:42 | NUR ---
REPORT GIVEN TO WILLIAMS FLETCHER FOR SHIKHA, WITH ONGOING LEVOPHED TITRATE TO EFFECT.
[2019-07-09] MEDS ORDERED: NOREPINEPHRINE 4 MG/4 ML AMPUL IV ONE ×2 (20:28→20:32)
[2019-07-09] MEDS ORDERED: PIPERACILLIN /TAZOBACTAM 3.375 G in IV D5W 50 ML IV SCH (21:00)
[2019-07-09 21:10] VITALS: BP 136/93
--- NOTE | 2019-07-09 21:10 | NUR ---
EXTRUSION DIE CORRECTOR NOTES, RECEIVED AND ADMITTED FROM ER VIA STRETCHER ,A 68 y/o MALE A/OX1 NON VERBAL ,WITH ADMITTING DX OF HYPOTENSION /ACUTE RENAL FAILURE ON SR ON THE MONITOR 78, UNDER THE CARE OF DR GARNER , ORDERS NOTED AND CARRIED OUT .PTS IS ON NON REBREATHER MASK AT 15 LITERS OF 02 , SATING 98% NPO STATUS , ADMISSION ROUTINE CARE RENDERED ,HEAD TO TOE ASSESSMENT DONE , SKIN INTACT AND PATENT ,PTS WITH BOOKER CATH INTACT AND PATENT DRAINING WITH YELLOWISH URINE OUTPUT , WITH LEFT FEMORAL TIPPLE LUMEN INTACT AND PATENT , RECEIVED PTS ON LEVO AT 0.8MCG /KG/MIN TOLERATING WELL , ALSO PTS ON IVF NS AT 125CC/HR ORDERED.WITH COLOSTOMY BAG NOTED WITH BLACK GREENISH OUTPUTARROUND 200CC , V/S TEMP 97.8 BP 136 /93 HR 78 RR 23 ,THEN BP WENT DOWN TO 80/48 AFTER 5 MINS.WITH RIGHT HAND AND RIGHT AC BOTH g#20 INTACT AND PATENT. ALL NEEDS ATTENDED TOO CALL LIGHT WITHIN REACH PTS IS R/O COVID STILL PENDING RESULT ON DROPLET ISOLATION PRECAUTIONARY MEASURES OBSERVED AT ALL TIMES .ON RIGHT HAND SOFT WRIST RESTRAINT TO PREVENT FROM PULLING INVASIVE TUBING , KEPT PTS CLEAN DRY AND COMFORTABLE.
--- NOTE | 2019-07-09 21:11 | NUR ---
BLOOD PRESSURE AT 121/70, LEVOPHED TITRATED TO 0.8MCG/KG/MIN
[2019-07-09 22:00] VITALS: BP 136/93
[2019-07-09] MEDS: IV NS 0.9% 1,000 ML IV PRN (22:02)
[2019-07-09 23:00] VITALS: BP 80/48
[2019-07-09] MEDS: NOREPINEPHRINE 8 MG in IV NS 0.9% 242 ML IV PRN (23:05)
[2019-07-09] MEDS: PANTOPRAZOLE 40 MG VIAL IV SCH (23:13)
[2019-07-09] MEDS: HEPARIN SODIUM, PORCINE 5000 UNITS/1 ML VIAL SQ SCH (23:14)
[2019-07-10] VITALS (40 sets, daily range): BP systolic 51–167; BP diastolic 31–113
[2019-07-10] MEDS ORDERED: NOREPINEPHRINE 4 MG/4 ML AMPUL IV ONE ×2 (01:05→03:51)
[2019-07-10] MEDS: PIPERACILLIN /TAZOBACTAM 2.25 G in IV D5W 50 ML IV SCH ×3 (01:15→16:25)
[2019-07-10] MEDS: NOREPINEPHRINE 8 MG in IV NS 0.9% 242 ML IV PRN ×4 (01:28→09:33)
[2019-07-10 05:16] LABS: BASOPHILS # (AUTO) 0.1 /CMM (0.0-0.2); BASOPHILS % (AUTO) 0.4 % (0.0-2.0); HEMATOCRIT 44 % (39-51); HEMOGLOBIN 14.6 g/dL (13.5-17.5); LYMPHOCYTES % (AUTO) 7.5 % (20.0-44.0); MEAN CORPUSCULAR HGB CONC 33 g/dl (31.0-36.0); MEAN CORPUSCULAR VOLUME 92 fL (80-96); MONOCYTES # (AUTO) 1.4 /CMM (0.1-1.30); MONOCYTES % (AUTO) 10.1 % (2.0-12.0); NEUTROPHILS # (AUTO) 11.3 /CMM (1.8-8.9); PLATELET COUNT (AUTO) 198 /CMM (150-450); WHITE BLOOD COUNT (AUTO) 13.8 K/uL (4.3-11.0)
[2019-07-10] MEDS: IV NS 0.9% 1,000 ML IV PRN (05:24)
--- NOTE | 2019-07-10 06:00 | NUR ---
FRAME AND SCRAP CRUSHER NOTES SEEN AND EXAMINED BY DR GARNER AT BEDSIDE RELAYED LACTIC ACID 2.4 WITH NNO .
[2019-07-10 06:01] LABS: CALCIUM, SERUM 8.5 mg/dL (8.5-10.1); CARBON DIOXIDE 11 mmol/L (21-32); CHLORIDE 108 mmol/L (98-107); CREATININE 5.2 mg/dL (0.6-1.3); GLUCOSE 185 mg/dL (74-106); MAGNESIUM 1.9 mg/dL (1.8-2.4); POTASSIUM 4.6 mmol/L (3.5-5.1); SODIUM SERUM 140 mmol/L (136-145)
[2019-07-10 06:02] LABS: UREA NITROGEN, BLOOD 100 mg/dL (7-18)
--- NOTE | 2019-07-10 06:56 | NUR ---
HEAD KILN OPERATOR NOTES PTS REMAINS ON LEVO AT 0.6MCG/KG /MIN TOLERATING WELL ,ON 02 TITRATED TO 10 LITERS VIA FACE MASK, WILL ENDORSE TO RN DAY SHIFT FOR CONTINUITY OF CARE.
--- NOTE | 2019-07-10 08:00 | NUR ---
CNC LATHE PROGRAMMER NOTE PATIENT ON BED , ALL NEEDS ATTENDED, WITH SIMPLE MASK 8L NC, SAT 100%, WITH BOOKER CATH TO GRAVITY WITH YELLOW COLOR URINE, ALERT AWAKE WITH CONFUSION, WITH COLOSTOMY BAG WITH LIQUID STOOL , ON IVF ORDERED LT GROIN TLV FLUSHED WELL ON LEVOPHED DRIP ORDERED, AND ON IVF ORDERED, BED IN LOWEST AND LOCKED POSITION, 2DECHO DONE ORDERED ,WILL MONITOR CLOSELY
[2019-07-10] MEDS: HEPARIN SODIUM, PORCINE 5000 UNITS/1 ML VIAL SQ SCH (08:52)
--- NOTE | 2019-07-10 08:53 | NUR ---
FACILITY ATTENDANT NOTE CALLED TO DR GARNER NOTIFIED THAT PT 22.2 APTT 120.7 OK TO Rosa\Gino AT THIS TIME ORDER CARRIED OUT Addendum: 07/10/19 at 1344 by KARTHIK COPELAND RN D\C HEPARIN AT THIS TIME PER DR GARNER
[2019-07-10] MEDS ORDERED: PANTOPRAZOLE 40 MG VIAL IV SCH (09:00)
[2019-07-10 09:13] LABS: BILIRUBIN,DIRECT 0.1 mg/dL (0.0-0.2)
--- NOTE | 2019-07-10 10:23 | NUR ---
MILK HAULER NOTE DR DORANTES AWARE THAT BUN 100 CREAT 5.[address] DIXON BRACELET MAKER NOVELTY AWARE THAT ON 8L SIMPLE MASK WILL MONITOR
[2019-07-10] MEDS: Sodium Bicarbonate 150 MEQ in IV D5W 1,000 ML IV PRN ×2 (10:41→21:12)
--- NOTE | 2019-07-10 11:03 | NUR ---
AMMONIA REFRIGERATION TECHNICIAN NOTE US KIDNEY AND UA COLLECTED ORDERED
[2019-07-10] MEDS: NOREPINEPHRINE 32 MG in IV NS 0.9% 218 ML IV PRN ×2 (11:36→19:54)
--- NOTE | 2019-07-10 12:00 | NUR ---
DIMPLING MACHINE OPERATOR NOTE DR WONG NOTIFIED THAT TROPONIN 4.826. WILL AWITE FOR FURTHER ORDERS
[2019-07-10 12:13] LABS: ABG BASE EXCESS -13.8 mmol/L; ABG OXYGEN SATURATION 98.4 % (92.0-98.5); ABG PCO2 20.5 mmHg (35.0-45.0); ABG PH 7.312 (7.350-7.450); ABG PO2 131.1 mmHg (75.0-100.0); AaDO2 166.4 mmHg; MetHb 0.2 % (0.0-1.5); O2Hb 98.2 % (94.0-97.0); SITE, ABG Right Radial; VENT MODE, BG SM
[2019-07-10 12:56] LABS: THYROID STIMULATING HORMONE 0.982 uIU/mL (0.358-3.74)
--- NOTE | 2019-07-10 13:36 | NUR ---
IVF EMBRYOLOGIST NOTE UNABLE TO START HEPARIN DRIP NO PTT RESULT YET ,PHARMACY NOTIFIED
--- NOTE | 2019-07-10 13:47 | NUR ---
PIPE CUTTER NOTE ABG DONE ,PER RT OK TO START 4L NC SAT 95%
[2019-07-10] MEDS ORDERED: HEPARIN SODIUM, PORCINE 5000 UNITS/1 ML VIAL IV ONE (14:00)
[2019-07-10] MEDS: HEPARIN INFUSION/D5W 500 ML IV PRN (14:45)
--- NOTE | 2019-07-10 14:45 | NUR ---
PEDIATRIC PSYCHIATRIST NOTE SPOKE WITH PHARMACIST KELLEE ABOUT HEPARIN DRIP AWARE PTT 29.[address] WONG AND VIDHYA TO GIVE HEPARIN BOLUS AND START HEPARIN DRIP PER PROTOCOL Addendum: 07/10/19 at 1634 by KARTHIK COPELAND RN BOLUS PER HOSPITAL,PROTOCOL 5600 HEPARIN GIVEN AND HEPARIN 1200 UNIT STARTED PER HOSPITAL PROTOCOL ORDERED BY DR WONG
[2019-07-10 17:28] LABS: CALCIUM, SERUM 8.2 mg/dL (8.5-10.1); CREATININE 4.3 mg/dL (0.6-1.3); POTASSIUM 4.9 mmol/L (3.5-5.1)
--- NOTE | 2019-07-10 18:49 | NUR ---
REPAIR SERVICER NOTE ALL NEEDS ATTENDED, ON 4L NC NO SOB NOTED ,ON LEVOPHED DRIP AND HEPARIN DRIP ORDERED WILL MONITOR
--- NOTE | 2019-07-10 19:00 | NUR ---
Received patient awake,alert,non verbal,follows simple commands,seems to understand but not talking .Not in nay distress,breathing regular and non labored, with O2 via nasal cannula 4 L/min.left arm a little contracted but slightly able to move, both lower extremities weak but able to move . Triple Lumen catheter on left femoral area, ,Levophed drip for BP support, NAHCO3 drip, Heparin drip. No S/S of any bleeding noted.Patient denies any pain/chest pain.On Droplet/Contact Isolation for COVID -19 +.
[2019-07-10] MEDS: PANTOPRAZOLE 40 MG VIAL IV SCH (21:54)
--- NOTE | 2019-07-10 22:45 | NUR ---
hOLD hEPARIN DRIP FOR 60 MINS, RESUME < 250 UNITS.( RESUME AT 950 UNITS/HR)
--- NOTE | 2019-07-10 23:45 | NUR ---
RESUMED HEPARIN DRIP @ 950 UNITS /HR.
[2019-07-11] VITALS (85 sets, daily range): BP systolic 83–129; BP diastolic 48–86
--- NOTE | 2019-07-11 | NUR ---
STATUS UNCHANGED,STABLE ,NOT IN ANY DISTRESS.
[2019-07-11] MEDS: PIPERACILLIN /TAZOBACTAM 2.25 G in IV D5W 50 ML IV SCH ×3 (01:00→15:42)
[2019-07-11] MEDS ORDERED: NOREPINEPHRINE 4 MG/4 ML AMPUL IV ONE (02:38)
[2019-07-11] MEDS: NOREPINEPHRINE 32 MG in IV NS 0.9% 218 ML IV PRN ×2 (03:45→20:31)
--- NOTE | 2019-07-11 04:00 | NUR ---
AM BATH RENDERED,TOLERATED WELL.WILL CONTINUE TO MONITOR FOR S/S OF ANY BLEEDING ,STILL ON HEPARIN DRIP.
[2019-07-11 05:02] LABS: BASOPHILS % (AUTO) 0.1 % (0.0-2.0); HEMATOCRIT 39 % (39-51); HEMOGLOBIN 13.9 g/dL (13.5-17.5); LYMPHOCYTES # (AUTO) 0.5 /CMM (0.8-4.8); LYMPHOCYTES % (AUTO) 7.3 % (20.0-44.0); MEAN CORPUSCULAR HGB CONC 35 g/dl (31.0-36.0); MEAN CORPUSCULAR VOLUME 90 fL (80-96); MONOCYTES # (AUTO) 0.8 /CMM (0.1-1.30); MONOCYTES % (AUTO) 10.7 % (2.0-12.0); NEUTROPHILS % (AUTO) 81.9 % (43.0-81.0); PLATELET COUNT (AUTO) 135 /CMM (150-450); RED BLOOD CELL COUNT(AUTO) 4.38 MIL/uL (4.5-6.0); WHITE BLOOD COUNT (AUTO) 7.4 K/uL (4.3-11.0)
[2019-07-11 05:09] LABS: APPEARANCE,URINE SL CLOUDY (CLEAR); BILIRUBIN,URINE NEGATIVE (NEGATIVE); BLOOD, URINE LARGE Ery/uL (NEGATIVE); COLOR,URINE YELLOW (YELLOW); KETONES,URINE NEGATIVE (NEGATIVE); LEUKOCYTE ESTERASE ,URINE NEGATIVE (NEGATIVE); NITRITE, URINE NEGATIVE (NEGATIVE); PH,URINE 5.5 (5.0-8.0); PROTEIN,URINE 30 mg/dl (NEGATIVE); UGLUCOSE NEGATIVE (NEGATIVE); UROBILINOGEN,URINE 0.2 EU/dL (0.2)
[2019-07-11 05:17] LABS: BACTERIA,URINE Few /HPF (None Seen); SQUAMOUS EPITHELIAL CELL,UR Few /HPF (None Seen); WBC,URINE 0-2 /HPF (0-3)
[2019-07-11 05:27] LABS: ALBUMIN 2.4 g/dL (3.4-5.0); BILIRUBIN,TOTAL 0.5 mg/dL (0.2-1.0); CALCIUM, SERUM 7.7 mg/dL (8.5-10.1); CREATININE 3.1 mg/dL (0.6-1.3); MAGNESIUM 1.3 mg/dL (1.8-2.4); PHOSPHORUS 2.2 mg/dL (2.5-4.9); POTASSIUM 3.5 mmol/L (3.5-5.1); TOTAL PROTEIN, SERUM 5.7 g/dL (6.4-8.2)
[2019-07-11 05:30] LABS: CREATININE, URINE 62.3 MG/DL (30.0-125.0); URINE TOTAL PROTEIN 55.9 mg/dL (0-11.9)
[2019-07-11 05:43] LABS: EOSINOPHIL,URINE None Seen
--- NOTE | 2019-07-11 06:15 | NUR ---
HEPARIN DRIP HOLD, PTT=95.7 .HOLD FOR 60 MINS THEN RESUME 700 UNITS/HR(250 UNITS LESS THAN THE LAST RATE)
[2019-07-11] MEDS: Sodium Bicarbonate 150 MEQ in IV D5W 1,000 ML IV PRN (07:18)
--- NOTE | 2019-07-11 07:40 | NUR ---
DAIRY EQUIPMENT REPAIRER: pt is awake, eyes contact+, no verbal, unable to follow commands well, rest now, on R.wrist restrain, L.site weakness, able to remove IVL, tubes, uncooperative, no grimacing, Covid19+, coughing+, pt is without mask!, O2sat. over 96% on 4L n/c, no SOB/distress, placed mask over pt.face, SR, on Levophed gtt 0.5 mcg/kg/m now, SBP over 90, continue titrate, met.acidosis, getting Bicarb IV, on Heparin gtt/PTT 95/was on hold 1hr,resumed, next PTT at 13.00, T 101.0/will s/w MD for meds, Mg1.3, Phos2.2, NPO, colostomy is intact, urine 1300ml/12hrs, next: get ABG
[2019-07-11] MEDS ORDERED: POTASSIUM PHOSPHATE MM 15 MMOL in IV NS 0.9% 250 ML IV SCH (08:00)
--- NOTE | 2019-07-11 08:00 | NUR ---
PIZZA DELIVERY DRIVER: updated with pt.current status, ABG pH 7.52/24/147/19, anion gap 23 to 16
--- NOTE | 2019-07-11 08:10 | NUR ---
SHOTBLAST EQUIPMENT OPERATOR: cooling measures+
[2019-07-11 08:42] LABS: ABG BASE EXCESS -1.5 mmol/L; ABG OXYGEN SATURATION 98.7 % (92.0-98.5); ABG PCO2 24.7 mmHg (35.0-45.0); ABG PO2 147.8 mmHg (75.0-100.0); AaDO2 80.2 mmHg; COHb 0.1 % (0.5-1.5); MetHb 0.1 % (0.0-1.5); O2Hb 98.5 % (94.0-97.0); SITE, ABG Right Radial; VENT MODE, BG N/C 4LPM
--- NOTE | 2019-07-11 09:00 | NUR ---
BALL POINTS INSPECTOR: d/michael Bicarb IV, ordered LR IVF, see new orders, was notified re troponin 12.3, said: continue Heparin gtt
[2019-07-11] MEDS: ATORVASTATIN 40 MG TABLET PO SCH (09:10)
[2019-07-11] MEDS: POTASSIUM PHOSPHATE MM 7.5 MMOL in IV D5W 100 ML IV SCH ×2 (09:15→11:40)
[2019-07-11] MEDS: Magnesium 1GM/D5W 100ML PREMIX 100 ML IV SCH ×2 (09:15→10:26)
[2019-07-11] MEDS ORDERED: IV LR 1000 ML 1,000 ML IV ONE (09:30)
--- NOTE | 2019-07-11 10:59 | NUR ---
LEVEL DESIGNER: updated with pt.current status, VS, Levophed gtt, ABG, IVF, labs, Heparin gtt, I/O, see new orders, said: ok to order Tylenol
--- NOTE | 2019-07-11 11:30 | NUR ---
NUT PICKER: updated with all above, see new orders, ok to order Tylenol
[2019-07-11] MEDS: ACETAMINOPHEN 325 MG TABLET PO PRN (13:07)
--- NOTE | 2019-07-11 13:45 | NUR ---
DIAMOND WHEEL MOLDER: QTC interval 0.454
--- NOTE | 2019-07-11 13:48 | NUR ---
MILITARY NURSE: pt is able to swallow ice chips slowly with aspiration precaution monitoring
--- NOTE | 2019-07-11 14:30 | NUR ---
TIEING MACHINE OPERATOR: PTT 129.8, spoke with lab to repeat PTT STAT from peripheral blood
--- NOTE | 2019-07-11 14:45 | NUR ---
EVENT PLANNING MANAGER: pharmacy called with request to get PTT blood sample peripherally
--- NOTE | 2019-07-11 15:20 | NUR ---
ELECTRONIC VIDEO GAMES SERVICER: pt.sister called/got info re pt.current condition, VS, meds, orders, POC
[2019-07-11] MEDS: HYDROXYCHLOROQUINE 200 MG/8 ML SUSPENSION NG SCH ×2 (15:25→21:00)
--- NOTE | 2019-07-11 16:12 | NUR ---
TUBE DRAWING SUPERVISOR: 2 unsuccessful attempts to draw blood peripherally for PTT/other refrigerated national truck driver is coming
--- NOTE | 2019-07-11 17:06 | NUR ---
SCREEDMAN/LABORER: called to lab again/waiting retort loader. Pt.is more awake, eyes contact+, can follow simple commands, rest, no pain, O2sat, over 97% on 2L nc, no SOB, SR, on 0.2 mcg/kg/m Levophed gtt, all PM,skin care done, colostomy is intact, 1.1L urine out
--- NOTE | 2019-07-11 19:15 | NUR ---
YARDER: PTT 124 now, stopped Heparin gtt for 1 hr per protocol, reported to WILLIAMS Person to resume gtt with rate 450units/h, repeat PTT at 00.00(order is in), following order. Full report given for WILLIAMS Person
--- NOTE | 2019-07-11 19:15 | NUR ---
ICU/RN RECEIVED PATIENT WITH NO DISTRESS. PATIENT IS A/OX2 SPEAKS [place]KIN[place] BUT MUMBLES SOME WORDS. PATIENT IS ON 2L WITH NC OF O2 SATURATING AT 100% WITH NO SIGN OF ANY SOB. PATIENT SHOWING SR WITH HR AT 75 ON BESIDE MONITOR. LEFT FEM TLC WITH HEPARIN ON HOLD AND WILL DECREASE TO 450 UNITS AT 2000. LEVO AT 0.2MCG/KG/MIN AND LR RUNNING AT 75ML/HR. FC DRAINING VIA GRAVITY WITH YELLOW CLEAR OUTPUT. ALL SAFETY PRECAUTIONS APPLIED. WILL CONTINUE TO MONITOR PATIENT THROUGHOUT SHIFT.
--- NOTE | 2019-07-11 19:20 | NUR ---
ASSISTANT AUTO CENTER MANAGER: reported to give Lipitor for HS time f/u eMAR
[2019-07-11] MEDS: HEPARIN INFUSION/D5W 500 ML IV PRN (20:23)
--- NOTE | 2019-07-11 21:30 | NUR ---
CONTACTED DR. GARNER REGARDING QTC INTERVAL OF 547. PASCUAL GAVE ORDERS TO HOLD PLAQUENIL FOR SCHEDULED 2100. WILL CONTINUE TO MONITOR PATIENT.
[2019-07-11] MEDS: PANTOPRAZOLE 40 MG VIAL IV SCH (21:39)
[2019-07-12] VITALS (66 sets, daily range): BP systolic 83–146; BP diastolic 45–82
[2019-07-12] MEDS: PIPERACILLIN /TAZOBACTAM 2.25 G in IV D5W 50 ML IV SCH (01:37)
[2019-07-12] MEDS: ACETAMINOPHEN 650 MG/SUPP.RECT RC PRN ×3 (04:39→21:05)
[2019-07-12 05:57] LABS: BASOPHILS % (AUTO) 0.1 % (0.0-2.0); HEMATOCRIT 39 % (39-51); HEMOGLOBIN 13.3 g/dL (13.5-17.5); LYMPHOCYTES # (AUTO) 0.5 /CMM (0.8-4.8); LYMPHOCYTES % (AUTO) 9.1 % (20.0-44.0); MEAN CORPUSCULAR HGB CONC 35 g/dl (31.0-36.0); MEAN CORPUSCULAR VOLUME 91 fL (80-96); MONOCYTES # (AUTO) 0.4 /CMM (0.1-1.30); MONOCYTES % (AUTO) 7.5 % (2.0-12.0); NEUTROPHILS # (AUTO) 4.4 /CMM (1.8-8.9); NEUTROPHILS % (AUTO) 83.3 % (43.0-81.0); PLATELET COUNT (AUTO) 127 /CMM (150-450); RED BLOOD CELL COUNT(AUTO) 4.24 MIL/uL (4.5-6.0); WHITE BLOOD COUNT (AUTO) 5.3 K/uL (4.3-11.0)
[2019-07-12 06:34] LABS: ALBUMIN 2.3 g/dL (3.4-5.0); BILIRUBIN,TOTAL 0.7 mg/dL (0.2-1.0); CREATININE 1.8 mg/dL (0.6-1.3); MAGNESIUM 1.7 mg/dL (1.8-2.4); PHOSPHORUS 2.1 mg/dL (2.5-4.9); POTASSIUM 3.7 mmol/L (3.5-5.1); TOTAL PROTEIN, SERUM 5.6 g/dL (6.4-8.2)
--- NOTE | 2019-07-12 07:14 | NUR ---
ICER HAND PATIENT IN ROOM WITH NO SIGN OF ANY DISTRESS. PATIENT ON 2L OF 02 SATURATING AT 100% WITH NO SIGN OF ANY SOB. PATIENT CONTINUES TO BE ON HEPARIN AT 450 UNITS AND LEVO AT 0.1MCG/KG/MIN. ALL SAFETY PRECAUTIONS APPLED. ENDORSED PATIENT TO MORNING SHIFT NURSE FOR SHIKHA.
[2019-07-12] MEDS ORDERED: POTASSIUM PHOSPHATE MM 15 MMOL in IV NS 0.9% 250 ML IV SCH (08:00)
--- NOTE | 2019-07-12 08:00 | NUR ---
BIODIESEL PRODUCT MANAGER: pt.is awake, eyes contact+, L.weakness, unable to follow commands now, rest now, uncooperative, on R.wrist restrain, no grimacing, no verbal, Sr, SBP over 100/stopped Levophed gtt, O2sat over 97% on 2L nc, no SOB, Heparin gtt, LR IVF stopped per order, e-lytes replacement orders+, colostomy bag intact, oriented for POC, fall/injury prevention measures
[2019-07-12] MEDS: Magnesium 1GM/D5W 100ML PREMIX 100 ML IV SCH ×2 (08:26→10:04)
[2019-07-12] MEDS: HEPARIN SODIUM, PORCINE 5000 UNITS/1 ML VIAL SQ SCH ×2 (08:26→20:07)
[2019-07-12] MEDS: IV D5/0.45 NACL 1,000 ML IV PRN ×2 (08:27→23:05)
--- NOTE | 2019-07-12 08:45 | NUR ---
TREE MARKER: updated with pt.current condition, VS, pressor off now, IVF, orders, I/O, NPO, labs, QTC interval .388/said ok to continue Hydroxychloroquine, see new orders
--- NOTE | 2019-07-12 10:00 | NUR ---
FRESH MEAT GRADER: called pharmacy to get Plaquenil
[2019-07-12 11:06] LABS: PTH, INTACT 77 pg/mL (15-65)
--- NOTE | 2019-07-12 11:10 | NUR ---
HEALTHCARE BUSINESS ANALYST: updated with pt.current condition, VS, O2sat., pressor, herapin gtts off, IVF, I/O, NPO, meds, lab, orders, see new orders
[2019-07-12] MEDS: PIPERACILLIN /TAZOBACTAM 3.375 G in IV D5W 100 ML IV SCH ×2 (11:25→17:44)
[2019-07-12] MEDS ORDERED: DEXTROSE 50%-WATER 50 ML DISP.SYRIN IV PRN (11:30)
--- NOTE | 2019-07-12 11:35 | NUR ---
CHAIR TRIMMER: called to kitchen to get apple puree packs/milk to give Hydroxychloroquine with
[2019-07-12] MEDS: HYDROXYCHLOROQUINE 200 MG/8 ML SUSPENSION NG SCH ×2 (12:36→17:02)
[2019-07-12] MEDS: BLOOD SUGAR DIAGNOSTIC 1 EACH STRIP IN SCH ×2 (12:36→19:00)
--- NOTE | 2019-07-12 19:10 | NUR ---
VOCATIONAL DIRECTOR NOTE RECEIVED PATIENT WITH HOB ELEVATED, PT IN NO S/S OF ANY DISTRESS. ON 2L VIA NC OF 02 SATURATING AT 99% WITH NO SIGN OF ANY SOB. D5 1/2 NS INFUSING AT 70 ML/HR. RIGHT WRIST SOFT RESTRAINT IN PLACE, ALL SAFETY PRECAUTIONS APPLIED, SIDE RAILS UP X 3. WILL CONTINUE TO MONITOR PT
[2019-07-12] MEDS: PANTOPRAZOLE 40 MG VIAL IV SCH (20:07)
[2019-07-12] MEDS: ATORVASTATIN 40 MG TABLET PO SCH (21:05)
[2019-07-13] VITALS (20 sets, daily range): BP systolic 91–144; BP diastolic 43–105
[2019-07-13] MEDS: BLOOD SUGAR DIAGNOSTIC 1 EACH STRIP IN SCH ×4 (00:07→16:54)
[2019-07-13] MEDS: INSULIN REGULAR, HUMAN 100 UNIT/ML 3 ML VIAL SQ PRN ×2 (00:09→06:44)
[2019-07-13] MEDS: PIPERACILLIN /TAZOBACTAM 3.375 G in IV D5W 100 ML IV SCH ×3 (03:18→20:55)
[2019-07-13 05:10] LABS: BASOPHILS % (AUTO) 0.1 % (0.0-2.0); EOSINOPHILS % (AUTO) 0.1 % (0.0-6.0); HEMATOCRIT 35 % (39-51); HEMOGLOBIN 12.2 g/dL (13.5-17.5); LYMPHOCYTES # (AUTO) 0.3 /CMM (0.8-4.8); LYMPHOCYTES % (AUTO) 10.6 % (20.0-44.0); MEAN CORPUSCULAR HGB CONC 35 g/dl (31.0-36.0); MEAN CORPUSCULAR VOLUME 91 fL (80-96); MONOCYTES # (AUTO) 0.3 /CMM (0.1-1.30); MONOCYTES % (AUTO) 12.2 % (2.0-12.0); NEUTROPHILS # (AUTO) 2.1 /CMM (1.8-8.9); PLATELET COUNT (AUTO) 103 /CMM (150-450); WHITE BLOOD COUNT (AUTO) 2.7 K/uL (4.3-11.0)
[2019-07-13 05:48] LABS: ALBUMIN 2.1 g/dL (3.4-5.0); BILIRUBIN,TOTAL 0.5 mg/dL (0.2-1.0); CREATININE 1.6 mg/dL (0.6-1.3); PHOSPHORUS 2.1 mg/dL (2.5-4.9); POTASSIUM 3.8 mmol/L (3.5-5.1); TOTAL PROTEIN, SERUM 5.3 g/dL (6.4-8.2)
--- NOTE | 2019-07-13 06:45 | NUR ---
RN CLOSING NOTE PATIENT AWAKE WITH HOB ELEVATED, PT IN NO S/S OF ANY DISTRESS DURING SHIFT. ON 2L VIA NC OF 02 SATURATING AT 100% WITH NO SIGN OF ANY SOB. D5 1/2 NS INFUSING AT 70 ML/HR. RIGHT WRIST SOFT RESTRAINT IN PLACE, BOOKER CATH PATENT AND DRAINING YELLOW URINE. ALL SAFETY PRECAUTIONS IN PLACE, SIDE RAILS UP X 3. ENDORSED TO AM RN FOR SHIKHA
--- NOTE | 2019-07-13 07:30 | NUR ---
rn notes received patient, awake, responsive to verbal stimuli, able to mumble but words are unclear. breathing unlabored. with oxygen support via nasal cannula with oxygen at 2lpm. sinus tachy on the monitor with hr on the 130s. patient denies pain of any kind. hob at 30 degree. iv access on the right groin, ivf infusing at desired rate. r hand on soft restraints, skin is intact on the site, patient able to wiggle hand. jackson cath in place, draining to yellow urine. safety measures in place. srx2 up. bed in low and locked position. will continue to monitor patient accordingly
[2019-07-13] MEDS ORDERED: POTASSIUM PHOSPHATE MM 15 MMOL in IV NS 0.9% 250 ML IV SCH (08:30)
[2019-07-13] MEDS: HYDROXYCHLOROQUINE 200 MG/8 ML SUSPENSION NG SCH ×2 (08:48→16:22)
[2019-07-13] MEDS: HEPARIN SODIUM, PORCINE 5000 UNITS/1 ML VIAL SQ SCH ×2 (08:49→21:20)
[2019-07-13] MEDS: ASPIRIN 81 MG TAB.CHEW PO SCH (08:49)
[2019-07-13] MEDS: CARVEDILOL 3.125 MG TABLET PO SCH ×2 (08:51→21:20)
--- NOTE | 2019-07-13 09:45 | NUR ---
PROCESSING TECHNOLOGIST NOTE Patient is now in room 103 stable and no signs of distress. Will cont to monitor.
--- NOTE | 2019-07-13 10:00 | NUR ---
rn notes endorsed patient for continuity of care. report given to WILLIAMS Garrett. patient transferred to [facility] via acls protocol
[2019-07-13] MEDS: IV D5/0.45 NACL 1,000 ML IV PRN (14:30)
--- NOTE | 2019-07-13 18:43 | NUR ---
OPERATIONAL RISK MANAGER CLOSING NOTE Patient in bed asleep no signs of distress. HOB elevated. Tele reading SR 70s. On NC 2L tolerating well. Patient is AO x1 mumbles words only. Has L Femoral PICC line running D5 1/2 NS @ 70 ml/hr. FC in place and patent draining clear yellow urine. Soft restraints on R wrist in place checked for adequate circulation and skin integrity. Colostomy bag present intact and skin with good circulation. No co pain or discomfort. Cont on IV antibiotics tolerating well. No signs of adverse reaction to medication. Vital signs within normal limits. Safety measure reinforced. Call light within reach. Bed locked and on lowest position. Siderails up x2. Will endorse to plaster applicator nurse for amina.
[2019-07-13] MEDS ORDERED: PIPERACILLIN /TAZOBACTAM 3.375 G VIAL IV ONE (20:44)
[2019-07-13] MEDS: ATORVASTATIN 40 MG TABLET PO SCH (21:19)
[2019-07-13] MEDS: PANTOPRAZOLE 40 MG VIAL IV SCH (21:20)
[2019-07-14] VITALS: BP 103/62
[2019-07-14] MEDS: BLOOD SUGAR DIAGNOSTIC 1 EACH STRIP IN SCH ×4 (00:27→18:01)
[2019-07-14] MEDS ORDERED: PIPERACILLIN /TAZOBACTAM 3.375 G VIAL IV ONE (02:52)
[2019-07-14] MEDS: PIPERACILLIN /TAZOBACTAM 3.375 G in IV D5W 100 ML IV SCH ×3 (02:56→19:44)
[2019-07-14 04:00] VITALS: BP 118/71
[2019-07-14 06:19] LABS: BASOPHILS % (AUTO) 1.2 % (0.0-2.0); EOSINOPHILS % (AUTO) 0.7 % (0.0-6.0); HEMATOCRIT 34 % (39-51); HEMOGLOBIN 11.4 g/dL (13.5-17.5); LYMPHOCYTES # (AUTO) 0.3 /CMM (0.8-4.8); LYMPHOCYTES % (AUTO) 13.3 % (20.0-44.0); MEAN CORPUSCULAR HGB CONC 34 g/dl (31.0-36.0); MEAN CORPUSCULAR VOLUME 92 fL (80-96); MONOCYTES # (AUTO) 0.3 /CMM (0.1-1.30); MONOCYTES % (AUTO) 14.3 % (2.0-12.0); NEUTROPHILS # (AUTO) 1.7 /CMM (1.8-8.9); NEUTROPHILS % (AUTO) 70.5 % (43.0-81.0); PLATELET COUNT (AUTO) 115 /CMM (150-450); RED BLOOD CELL COUNT(AUTO) 3.63 MIL/uL (4.5-6.0); WHITE BLOOD COUNT (AUTO) 2.4 K/uL (4.3-11.0)
--- NOTE | 2019-07-14 06:42 | NUR ---
TELE/RN PATIENT IN BED WITH NO DISTRESS. PATIENT IS ON 2L OF 02 WITH NO SOB SATURATING @ 99%. NO FEVER OVERNIGHT. ALL SAFETY PRECAUTIONS APPLIED. WILL ENDORSE PATIENT TO MORNING SHIFT NURSE FOR SHIKHA.
[2019-07-14 06:46] LABS: BILIRUBIN,TOTAL 0.5 mg/dL (0.2-1.0); CREATININE 1.6 mg/dL (0.6-1.3); MAGNESIUM 1.6 mg/dL (1.8-2.4); PHOSPHORUS 2.4 mg/dL (2.5-4.9); POTASSIUM 4.2 mmol/L (3.5-5.1); TOTAL PROTEIN, SERUM 5.2 g/dL (6.4-8.2)
[2019-07-14 08:00] VITALS: BP 103/63
[2019-07-14 08:18] LABS: BAND % (MANUAL) 3 % (0.0-5.0); LYMPHOCYTES % (MANUAL) 15 % (16-48); MONOCYTES % (MANUAL) 10 % (0-11.0); NEUTROPHILS % (MANUAL) 72 (42-76)
[2019-07-14] MEDS: HYDROXYCHLOROQUINE 200 MG/8 ML SUSPENSION NG SCH ×2 (08:44→16:37)
[2019-07-14] MEDS: CARVEDILOL 3.125 MG TABLET PO SCH ×2 (08:48→21:45)
[2019-07-14] MEDS: ASPIRIN 81 MG TAB.CHEW PO SCH (08:48)
[2019-07-14] MEDS: HEPARIN SODIUM, PORCINE 5000 UNITS/1 ML VIAL SQ SCH ×2 (08:50→21:47)
[2019-07-14] MEDS ORDERED: Magnesium 1GM/D5W 100ML PREMIX 100 ML IV SCH ×2 (09:45→11:00)
[2019-07-14 10:07] LABS: *SPE A/G RATIO 0.9 (0.7-1.7); *SPE ALBUMIN 2.4 g/dL (2.9-4.4); *SPE ALPHA-1-GLOBULIN 0.3 g/dL (0.0-0.4); *SPE ALPHA-2-GLOBULIN 0.8 g/dL (0.4-1.0); *SPE BETA GLOBULIN 0.7 g/dL (0.7-1.3); *SPE GLOBULIN, TOTAL 2.6 g/dL (2.2-3.9); *SPE M-SPIKE Not Observed g/dL (Not Observed); *SPEGAMMA GLOBULIN 0.7 g/dL (0.4-1.8)
[2019-07-14] MEDS ORDERED: K PHOS NEUTRAL 250 MG TABLET PO ONE (11:30)
[2019-07-14 12:00] VITALS: BP 97/59
[2019-07-14] MEDS: IV D5/0.45 NACL 1,000 ML IV PRN (15:57)
[2019-07-14 16:00] VITALS: BP 102/57
--- NOTE | 2019-07-14 18:49 | NUR ---
Patient awake, A/O x2 able to make needs known. Breathing unlabored with oxygen support via nasal cannula at 2lpm. SR on the monitor HR 76. IV access on the right femoral , ivf infusing at desired rate. B/L soft restrains released at this time. David cath in place, draining to yellow urine. Safety measures in place. Will endorse to next shift for SHIKHA
[2019-07-14 20:00] VITALS: BP 109/60
[2019-07-14] MEDS: ATORVASTATIN 40 MG TABLET PO SCH (21:44)
[2019-07-15] VITALS (8 sets, daily range): BP systolic 103–137; BP diastolic 54–69
[2019-07-15] MEDS: BLOOD SUGAR DIAGNOSTIC 1 EACH STRIP IN SCH ×4 (00:58→18:05)
[2019-07-15] MEDS: PIPERACILLIN /TAZOBACTAM 3.375 G in IV D5W 100 ML IV SCH ×3 (03:23→18:07)
[2019-07-15] MEDS: ACETAMINOPHEN 325 MG TABLET PO PRN (04:03)
--- NOTE | 2019-07-15 04:22 | NUR ---
INFORMATION SYSTEMS SECURITY MANAGER NOTES JATINDER BOURGEOIS OK'D D/C OF ACCU-CHECK ORDER SET D/T POC BS UNDER 100 FOR 3 DAYS CONSISTENTLY. SAFETY MEASURES IN PLACE. BED LOCKED AND IN LOWEST POSITION. NAD. NO SOB. WILL CONT PLAN OF CARE AND ENDORSE TO THE ONCOMING RN. Addendum: 07/16/19 at 0640 by RONAL TINOCO RN WRONG DATE
[2019-07-15 06:13] LABS: BASOPHILS % (AUTO) 0.2 % (0.0-2.0); EOSINOPHILS % (AUTO) 0.6 % (0.0-6.0); HEMATOCRIT 33 % (39-51); HEMOGLOBIN 11.2 g/dL (13.5-17.5); LYMPHOCYTES # (AUTO) 0.3 /CMM (0.8-4.8); LYMPHOCYTES % (AUTO) 13.4 % (20.0-44.0); MEAN CORPUSCULAR HGB CONC 35 g/dl (31.0-36.0); MEAN CORPUSCULAR VOLUME 91 fL (80-96); MONOCYTES # (AUTO) 0.3 /CMM (0.1-1.30); MONOCYTES % (AUTO) 12.7 % (2.0-12.0); NEUTROPHILS # (AUTO) 1.9 /CMM (1.8-8.9); NEUTROPHILS % (AUTO) 73.1 % (43.0-81.0); PLATELET COUNT (AUTO) 144 /CMM (150-450); RED BLOOD CELL COUNT(AUTO) 3.57 MIL/uL (4.5-6.0); WHITE BLOOD COUNT (AUTO) 2.6 K/uL (4.3-11.0)
[2019-07-15 07:18] LABS: CALCIUM, SERUM 7.8 mg/dL (8.5-10.1); CREATININE 1.5 mg/dL (0.6-1.3); MAGNESIUM 1.8 mg/dL (1.8-2.4); PHOSPHORUS 2.1 mg/dL (2.5-4.9); POTASSIUM 3.8 mmol/L (3.5-5.1)
--- NOTE | 2019-07-15 07:45 | NUR ---
TELE/RN OPENING NOTES RECEIVED PATIENT ON BED. PATIENT IN NO APPARENT RESPIRATORY DISTRESS NOTED. PATIENT ALERT ORIENTED X0. DENIES ANY PAIN AT THIS TIME. ON TELE MONITOR IN PLACED WITH READING SR 80. BED IN LOWEST POSITION SIDE RAILS UP X2. CALL LIGHT WITH IN REACH.WILL CONTINUE TO MONITOR. Addendum: 07/15/19 at 0747 by FORTUNATO COATS RN ERROR
--- NOTE | 2019-07-15 07:47 | NUR ---
TELE/RN OPENING NOTES RECEIVED PATIENT ON BED. PATIENT IN NO APPARENT RESPIRATORY DISTRESS NOTED. PATIENT ALERT ORIENTED X2. DENIES ANY PAIN AT THIS TIME. ON TELE MONITOR IN PLACED WITH READING SR 80. BED IN LOWEST POSITION SIDE RAILS UP X2. CALL LIGHT WITH IN REACH.WILL CONTINUE TO MONITOR.
[2019-07-15] MEDS: CARVEDILOL 3.125 MG TABLET PO SCH ×2 (09:00→21:38)
[2019-07-15] MEDS: ASPIRIN 81 MG TAB.CHEW PO SCH (09:14)
[2019-07-15] MEDS: PANTOPRAZOLE 40 MG TABLET.DR PO SCH (09:15)
[2019-07-15] MEDS: HEPARIN SODIUM, PORCINE 5000 UNITS/1 ML VIAL SQ SCH ×2 (09:19→21:36)
[2019-07-15] MEDS: HYDROXYCHLOROQUINE 200 MG/8 ML SUSPENSION NG SCH ×2 (09:25→17:05)
[2019-07-15] MEDS: POTASSIUM PHOSPHATE MM 5 MMOL in IV NS 0.9% 100 ML IV SCH ×2 (11:15→14:28)
[2019-07-15] MEDS ORDERED: K PHOS NEUTRAL 250 MG TABLET PO ONE (11:30)
--- NOTE | 2019-07-15 12:53 | NUR ---
TELE/RN NOTES BS 93MG/DL 0 COVERAGE
--- NOTE | 2019-07-15 18:05 | NUR ---
TELE/RN NOTES BS 88MG/DL 0 COVERAGE
--- NOTE | 2019-07-15 18:50 | NUR ---
TELE/RN CLOSING NOTES PATIENT IS ON BED. PATIENT IS ALERT AND ORIENTED X 2 -3. PATIENT IN NO APPARENT DISTRESS NOTED. DENIES ANY PAIN AT THIS TIME. PATIENT WITH NASAL CANNULA IN PLACED AT 2 L/MIN. TELE MONITOR IN PLACE SINUS RHYTHM 79. IV ACCESS IN PLACED AT LEFT FEMORAL PICC LINE PATENT AND INTACT. IVF OF SEEN AND EXAMINED BY MD WITH ORDERS MADE AND CARRIED OUT. ALL DUE MEDS WAS GIVEN. SAFETY PRECAUTION IN PLACE. CHECKED AND TURNED PATIENT EVERY 2 HOURS. KEPT PATIENT CLEAN AND DRY THE SHIFT. BED IS IN LOWEST POSITION, SIDE RAILS UP X2. CALL LIGHT WITHIN REACH. WILL ENDORSED TO MEDICATION CARE MANAGER FOR SHIKHA.
[2019-07-15] MEDS: ATORVASTATIN 40 MG TABLET PO SCH (21:35)
[2019-07-16] VITALS (7 sets, daily range): BP systolic 92–125; BP diastolic 53–72
[2019-07-16] MEDS: BLOOD SUGAR DIAGNOSTIC 1 EACH STRIP IN SCH (00:37)
[2019-07-16] MEDS: PIPERACILLIN /TAZOBACTAM 3.375 G in IV D5W 100 ML IV SCH ×3 (03:11→18:01)
--- NOTE | 2019-07-16 04:22 | NUR ---
PLATE FILLER NOTES JATINDER BOURGEOIS OK'D D/C OF ACCU-CHECK ORDER SET D/T POC BS UNDER 100 FOR 3 DAYS CONSISTENTLY. SAFETY MEASURES IN PLACE. BED LOCKED AND IN LOWEST POSITION. NAD. NO SOB. WILL CONT PLAN OF CARE AND ENDORSE TO THE ONCOMING RN.
[2019-07-16] MEDS: ACETAMINOPHEN 325 MG TABLET PO PRN (05:07)
[2019-07-16 06:50] LABS: CALCIUM, SERUM 8.1 mg/dL (8.5-10.1); CREATININE 1.4 mg/dL (0.6-1.3); MAGNESIUM 1.6 mg/dL (1.8-2.4); PHOSPHORUS 2.6 mg/dL (2.5-4.9); POTASSIUM 3.8 mmol/L (3.5-5.1)
[2019-07-16 06:55] LABS: BASOPHILS % (AUTO) 0.2 % (0.0-2.0); EOSINOPHILS % (AUTO) 1.6 % (0.0-6.0); HEMATOCRIT 31 % (39-51); HEMOGLOBIN 10.8 g/dL (13.5-17.5); LYMPHOCYTES # (AUTO) 0.5 /CMM (0.8-4.8); LYMPHOCYTES % (AUTO) 17.3 % (20.0-44.0); MEAN CORPUSCULAR HGB CONC 35 g/dl (31.0-36.0); MEAN CORPUSCULAR VOLUME 91 fL (80-96); MONOCYTES # (AUTO) 0.4 /CMM (0.1-1.30); MONOCYTES % (AUTO) 16.5 % (2.0-12.0); NEUTROPHILS # (AUTO) 1.7 /CMM (1.8-8.9); NEUTROPHILS % (AUTO) 64.4 % (43.0-81.0); PLATELET COUNT (AUTO) 140 /CMM (150-450); RED BLOOD CELL COUNT(AUTO) 3.45 MIL/uL (4.5-6.0); WHITE BLOOD COUNT (AUTO) 2.7 K/uL (4.3-11.0)
--- NOTE | 2019-07-16 07:32 | NUR ---
FACULTY I ON CALL MEDICAL ASSISTANT OPENING NOTES PATIENT IN BED RESTING COMFORTABLY. PATIENT IN NO ACUTE DISTRESS. NO SOB NOTED. PATIENT BREATHING IS EVEN AND UNLABORED. PATIENT ON CARDIAC MONITORING READING SINUS RHYTHM HR 91. PATIENT WITH RIGHT SOFT WRIST RESTRAINT, NOTED WITH GOOD CIRCULATION. PATIENT BED ALARM IS ON. PATIENT BED IS LOCKED AND IN LOWEST POSITION. CALL LIGHT WITHIN REACH. WILL CONTINUE TO MONITOR.
[2019-07-16] MEDS: HEPARIN SODIUM, PORCINE 5000 UNITS/1 ML VIAL SQ SCH ×2 (08:42→21:04)
[2019-07-16] MEDS: CARVEDILOL 3.125 MG TABLET PO SCH ×2 (08:43→21:04)
[2019-07-16] MEDS: ASPIRIN 81 MG TAB.CHEW PO SCH (08:43)
[2019-07-16] MEDS: PANTOPRAZOLE 40 MG TABLET.DR PO SCH (08:43)
[2019-07-16] MEDS: Magnesium 1GM/D5W 100ML PREMIX 100 ML IV SCH ×2 (10:06→11:11)
[2019-07-16 11:21] LABS: EOSINOPHILS % (MANUAL) 2 % (0-4); LYMPHOCYTES % (MANUAL) 17 % (16-48); MONOCYTES % (MANUAL) 12 % (0-11.0); NEUTROPHILS % (MANUAL) 69 (42-76)
[2019-07-16] MEDS ORDERED: POTASSIUM CHLORIDE 20 MEQ TAB.PRT.SR PO SCH (12:00)
--- NOTE | 2019-07-16 13:48 | NUR ---
PRINT PRODUCTION ASSOCIATE NOTE ORDER FOR PATIENT TO BE OFF BLOOD SUGAR CHECKS SINCE LAST NIGHT. SPOKE WITH DR. GARNER AND PER MD PATIENT IS TO REMAIN OFF BLOOD SUGAR CHECKS IF BLOOD SUGAR IS STABLE. PATIENT BLOOD SUGAR IS 96. PATIENT IN NO ACUTE DISTRESS. BLOOD SUGAR WNL. NO ORDER FOR GLUCOSE CHECKS AT THIS TIME.
--- NOTE | 2019-07-16 18:23 | NUR ---
WAREHOUSE PULLER CLOSING NOTES PATIENT IN BED RESTING COMFORTABLY. PATIENT IN NO ACUTE DISTRESS. NO SOB NOTED. PATIENT BREATHING IS EVEN AND UNLABORED. PATIENT ON CARDIAC MONITORING READING SINUS RHYTHM HR 78. PATIENT WITH RIGHT SOFT WRIST RESTRAINT, NOTED WITH GOOD CIRCULATION. PATIENT TURNED AND REPOSITIONED Q2H. PATIENT KEPT CLEAN, DRY AND COMFORTABLE THROUGHOUT SHIFT. PATIENT BED ALARM IS ON. PATIENT BED IS LOCKED AND IN LOWEST POSITION. CALL LIGHT WITHIN REACH. WILL ENDORSE CARE TO PM SHIFT FOR SHIKHA.
--- NOTE | 2019-07-16 19:30 | NUR ---
TELE1 RN NOTES RECEIVED ON BED A/O X2,WITH DELAYED RESPONSE TO QUESTION ASKED.BREATHING NON LABORED 02 AT 2L/NC IN USED.ISOLATION PRECAUTION FOR COVID 19 POSITIVE.IV ABX INFUSING WELL VIA IV PUMP ON LEFT GROIN PICC LINE.WITH RIGHT COLOSTOMY BAG DRAINING LIQUID STOOL.BOOKER CATH IN PLACE DRAINING CLEAR YELLOW URINE.CALL LIGHT IN REACH,NEEDS ANTICIPATED.
--- NOTE | 2019-07-16 20:02 | NUR ---
TELE1 RN NOTES SR-80 ON TELE MONITOR.
--- NOTE | 2019-07-16 21:30 | NUR ---
TELE1 RN NOTES DUE PO MEDS ADMINISTERED WITH APPLE SAUCE,TAKEN WELL.NEGATIVE FOR ASPIRATION
[2019-07-16] MEDS: ATORVASTATIN 40 MG TABLET PO SCH (21:32)
[2019-07-17] VITALS: BP 110/72
[2019-07-17] MEDS: PIPERACILLIN /TAZOBACTAM 3.375 G in IV D5W 100 ML IV SCH ×3 (03:06→18:04)
[2019-07-17 04:00] VITALS: BP 126/81
--- NOTE | 2019-07-17 06:21 | NUR ---
TELE1 RN NOTES ON BED A/O X2-3,MORE ALERT,RIGHT WRIST SOFT RESTRAINTS OFF THE WHOLE NIGHT.BOOKER OUTPUT CLOUDY WITH 150ML/URINE OUTPUT,WITH 2 X SOAKING WET DIAPER.COLOSTOMY BAG DRAINS 1100ML LIQUID STOOL.REPOSITION PER PROTOCOL,AFEBRILE.CALL LIGHT IN REACH,NEEDS ANTICIPATED.
--- NOTE | 2019-07-17 07:45 | NUR ---
LEGEND MAKER NOTES PATIENT RESTING IN BED, NO RESPIRATORY DISTRESS, ON O2 AT 2L VIA NASAL CANULA. PATIENT WITH NO C/O PAIN AT THIS TIME. PATIENT WITH F/C DRAINING CLOUDY YELLOW URINE. SKIN WARM TO TOUCH, IV PICC LINE INTACT AND PATENT. PATIENT'S NEEDS ATTENDED, BED ON LOWEST LOCKED POSITION, CALL LIGHT WITHIN REACH. WILL CONTINUE TO MONITOR.
[2019-07-17 08:00] VITALS: BP 108/74
[2019-07-17] MEDS: PANTOPRAZOLE 40 MG TABLET.DR PO SCH (08:21)
[2019-07-17] MEDS: ASPIRIN 81 MG TAB.CHEW PO SCH (08:21)
[2019-07-17] MEDS: HEPARIN SODIUM, PORCINE 5000 UNITS/1 ML VIAL SQ SCH ×2 (08:24→21:29)
[2019-07-17] MEDS: CARVEDILOL 3.125 MG TABLET PO SCH ×2 (08:33→21:27)
[2019-07-17 08:51] LABS: CALCIUM, SERUM 8.1 mg/dL (8.5-10.1); CREATININE 1.4 mg/dL (0.6-1.3); MAGNESIUM 1.8 mg/dL (1.8-2.4); POTASSIUM 4.1 mmol/L (3.5-5.1)
[2019-07-17 12:00] VITALS: BP_SYST 112; BP_SYST 123; BP_DIAS 69; BP_DIAS 78
[2019-07-17 16:00] VITALS: BP 112/75
--- NOTE | 2019-07-17 18:34 | NUR ---
R DEVELOPER NOTES PATIENT AWAKE IN BED, NO RESPIRATORY DISTRESS, ON ROOM AIR SPO2 AT 98%. PATIENT WITH NO C/O PAIN AT THIS TIME. PATIENT WITH F/C DRAINING CLOUDY YELLOW URINE. COLOSTOMY BAG EMPTIED AND CHANGED. SKIN WARM TO TOUCH, IV PICC LINE INTACT AND PATENT. PATIENT'S NEEDS ATTENDED, BED ON LOWEST LOCKED POSITION, CALL LIGHT WITHIN REACH. WILL ENDORSE TO ONCOMING NURSE.
--- NOTE | 2019-07-17 19:31 | NUR ---
TELE1 RN NOTES RECEIVED ON BED A/I X2-3,MORE ALERT,RESTRAINTS OFF OH RIGHT HAND,IV ABX INFUSING VIA IV PUMP ON LEFT FEMORAL PICC LINE.COLOSTOMY BAG IN PLACE DRAINING LIQUID STOOL.WITH BOOKER CATH DRAINS CLOUDY OUTPUT.BRUISING NOTED ON RIGHT ARM.ISOLATION PRECAUTION OBSERVED FOR COVID 19 POSITIVE.CALL LIGHT IN REACH,NEEDS ANTICIPATED.
[2019-07-17 20:00] VITALS: BP 127/74
[2019-07-17] MEDS: ATORVASTATIN 40 MG TABLET PO SCH (21:29)
[2019-07-18 00:18] VITALS: BP 104/60
[2019-07-18] MEDS: PIPERACILLIN /TAZOBACTAM 3.375 G in IV D5W 100 ML IV SCH ×3 (02:31→19:32)
[2019-07-18 04:00] VITALS: BP 122/78
--- NOTE | 2019-07-18 06:20 | NUR ---
TELE1 RN NOTES NO SIGNIFICANT CHANGE IN STATUS.COVID 19 POSITIVE,AFEBRILE.COLOSTOMY BAG CHANGE TWICE.REPOSITION PER PROTOCOL.IV ABX INFUSING OVER 4 HOURS.IN NO ACUTE DISTRESS
[2019-07-18 08:00] VITALS: BP 125/70
--- NOTE | 2019-07-18 08:00 | NUR ---
RN OPENING NOTE: RECEIVED PATIENT IN BED THIS MORNING. PATIENT IS AWAKE AND ALERT BUT WAS NOT RESPONDING TO QUESTIONS ASKED. PATIENT HAD REMOVED NC, SATING 99% RA. RESTRAINTS CURRENTLY OFF, PATIENT NOT INTERRUPTING PLAN OF CARE. COLOSTOMY IN PLACE, NO BM YET, POUCH INTACT, NO SIGNS OF COMPLICATIONS NOTED. BOOKER CATHETER IN PLACE, DRAINING YELLOW URINE. FEMORAL PICC LINE, C/D/I , FLUSHES WELL, NO SIGNS OF COMPLICATIONS NOTED. SAFETY MEASURES IMPLEMENTED, BED IN LOWEST POSITION, LOCKED, SIDE RAILS UP, WILL CONTINUE TO MONITOR PATIENT FOR CHANGES. Addendum: 07/18/19 at 1517 by SANJAY CUNNINGHAM RN PATIENT ON ISOLATION PRECAUTIONS FOR COVID 19
[2019-07-18] MEDS: HEPARIN SODIUM, PORCINE 5000 UNITS/1 ML VIAL SQ SCH ×2 (08:36→20:43)
[2019-07-18] MEDS: PANTOPRAZOLE 40 MG TABLET.DR PO SCH (08:38)
[2019-07-18] MEDS: CARVEDILOL 3.125 MG TABLET PO SCH ×2 (08:38→20:39)
[2019-07-18] MEDS: ASPIRIN 81 MG TAB.CHEW PO SCH (08:38)
[2019-07-18 12:00] VITALS: BP 110/70
[2019-07-18 16:00] VITALS: BP 117/77
--- NOTE | 2019-07-18 18:27 | NUR ---
RE-ASSESSED PATIENT, PATIENT IS NOW VERBALLY RESPONSIVE, A/O TO NAME ONLY.
--- NOTE | 2019-07-18 18:28 | NUR ---
RN CLOSING NOTE: PATIENT REMAINS IN BED. PATIENT IS SATING WELL ON ROOM AIR, NO SIGNS OF RESPIRATORY DISTRESS NOTED, NO SIGNS OF ACUTE DISTRESS NOTED. TELE MONITOR SR IN THE 80S. MAINTAIN ISOLATION PRECAUTIONS FOR COVID 19. RETESTED FOR COVID 19 AND SENT TO LAB, AWAITING RESULTS. WILL ENDORSE TO ONCOMING SHIFT RN FOR CONTINUITY OF CARE.
--- NOTE | 2019-07-18 19:05 | NUR ---
RN NOTES: RECEIVED AWAKE ON BED A/OX1 WITH PERIODS OF CONFUSION , WHILE DOING ROUNDS HE IS TALKING, ON TELE MONITOR SINUS TACHYCARDIA-100 ,LEFT FEMORAL PICC LINE,IVF ON KVO, ORIENTED TO UNIT AND STAFF, FALL SAFETY AND ASPIRATION PRECAUTION OBSERVED,ISOLATION PRECAUTION OBSERVED.BED LOW AND LOCKED, CALL LIGHT WITHIN EASY REACH.NO SOB ,NON LABORED BREATHING,AFEBRILE, ON COLOSTOMY, BOOKER CATH DRAINING WELL INTO YELLOWISH COLORED URINE AT 50CC LEVEL. ON CLOSE WATCH.
[2019-07-18 20:00] VITALS: BP_SYST 101; BP_SYST 108; BP_SYST 117; BP_DIAS 50; BP_DIAS 65; BP_DIAS 77
[2019-07-18] MEDS: ATORVASTATIN 40 MG TABLET PO SCH (21:08)
--- NOTE | 2019-07-18 21:22 | NUR ---
RN NOTES: AWAKE BUT QUITE,NOT TRYING TO REMOVE HIS TUBING, COOPERATIVE HE TOOK HIS MEDICATION WITH APPLE SAUCE, KEPT ON COMFORTABLE POSITION SPO2-100%RA, KEPT ON CLOSE VIUAL CHECK, NO ANY SIGN OF RESPIRATORY DISTRESS.
--- NOTE | 2019-07-18 23:14 | NUR ---
RN NOTES: PATIENT REMAIN CALM AND NOT PULLING HIS IV TUBING AND O2 TUBING, WE DID NOT PUT BACK HIS RESTRAIN, HE SLEEP AT SHORT INTERVAL, FALL,SAFETY AND ASPIRATION PRECAUTION OBSERVED, CALL LIGHT WITHIN EASY REACH.
[2019-07-19] VITALS: BP 108/65
[2019-07-19] MEDS: PIPERACILLIN /TAZOBACTAM 3.375 G in IV D5W 100 ML IV SCH ×2 (02:03→11:14)
[2019-07-19 04:00] VITALS: BP 127/56
--- NOTE | 2019-07-19 04:15 | NUR ---
RN NOTES: ASLEEP AT SHORT INTERVALS, AWAKE IN BETWEEN , REMAIN CALM, NOT RESTLESS, COOPERATIVE, FOLLOW INSTRUCTION,REPOSITIONING DONE, NEEDS ATTENDED, KEPT ON CLOSE WATCH.
--- NOTE | 2019-07-19 07:34 | NUR ---
RN NOTES: AWAKE, HE LOOKS MORE ALERT, TALKING IN BETWEEN, IVF ON KVO, OFF ON THE RESTRAINT THE ENTIRE SHIFT, REMAIN SINUS TACHYCARDIA-100, SHE WILL BE RETURNING BACK TO [place], NO POSSIBLE DISCHARGE DATE YET. FOR CR TODAY AND TO F/U COVID TEST RESULT, ENDORSED FOR CONTINUITY OF CARE.
[2019-07-19 08:00] VITALS: BP 140/80
[2019-07-19] MEDS: ASPIRIN 81 MG TAB.CHEW PO SCH (09:10)
[2019-07-19] MEDS: PANTOPRAZOLE 40 MG TABLET.DR PO SCH (09:11)
[2019-07-19] MEDS: CARVEDILOL 3.125 MG TABLET PO SCH (09:11)
[2019-07-19 12:00] VITALS: BP 133/76
[2019-07-19] MEDS ORDERED: ASPI-1169 PO (12:33)
--- NOTE | 2019-07-19 13:11 | NUR ---
[facility] NOAH Chan RN
[2019-07-19 16:00] VITALS: BP 126/72
--- NOTE | 2019-07-19 18:03 | NUR ---
Discharge patient to [facility] with all belongings and medication reconciliation along with a copy of discharge paperwork. Robin Chan RN
== END 2019-07-19 18:03 | DRG 871 ==
LOC: ER 16:41 → ICU 18:06 → TELE-TD 07-13 09:35 → TELE1 07-13 11:00
PROVIDERS: ADMIT Legal Medicine; ATTEND Legal Medicine
DX: A41.89 Other specified sepsis (principal); U07.1 COVID-19; J12.89 Other viral pneumonia; G93.41 Metabolic encephalopathy; N17.0 Acute kidney failure with tubular necrosis; E43 Unspecified severe protein-calorie malnutrition; J96.01 Acute respiratory failure with hypoxia; I21.9 Acute myocardial infarction, unspecified; R65.21 Severe sepsis with septic shock; I69.354 Hemiplegia and hemiparesis following cerebral infarction affecting left non-dominant side; E87.2 Acidosis; E87.0 Hyperosmolality and hypernatremia; N13.30 Unspecified hydronephrosis; D61.818 Other pancytopenia; R13.10 Dysphagia, unspecified; E78.5 Hyperlipidemia, unspecified; Z93.1 Gastrostomy status; Z79.899 Other long term (current) drug therapy; N18.9 Chronic kidney disease, unspecified; M19.90 Unspecified osteoarthritis, unspecified site; Z85.038 Personal history of other malignant neoplasm of large intestine; Z90.49 Acquired absence of other specified parts of digestive tract; Z93.3 Colostomy status; E86.0 Dehydration; E87.5 Hyperkalemia; E83.42 Hypomagnesemia; E83.39 Other disorders of phosphorus metabolism; I25.10 Atherosclerotic heart disease of native coronary artery without angina pectoris; I12.9 Hypertensive chronic kidney disease with stage 1 through stage 4 chronic kidney disease, or unspecified chronic kidney disease; E11.22 Type 2 diabetes mellitus with diabetic chronic kidney disease; E11.21 Type 2 diabetes mellitus with diabetic nephropathy; I34.0 Nonrheumatic mitral (valve) insufficiency
CPT/HCPCS: 36415; 36600; 71045-TC; 76770-TC; 80048-TC; 80053-TC; 80061-TC; 81000-TC; 82248-TC; 82378; 82550-TC; 82570-TC; 82728-TC; 82803-TC; 82962-TC; 83605-TC; 83615-TC; 83735-TC; 83880; 83970; 84100-TC; 84155; 84155-TC; 84165; 84300-TC; 84439-TC; 84443-TC; 84484-TC; 85025-TC; 85610-TC; 85730-TC; 86140-TC; 87040-TC; 87081-TC; 87086-TC; 92526; 92611-TC; 93307-TC; C1751; C9113; G0378; J1644; J1815; J2543; J3370; J3475; J3490; J7030; J7050; J7060; J7070; J7120